=== PATIENT | male | born 1950 | race African-American/Black ===

== ENCOUNTER 2017-05-13 16:18 | Inpatient (IN) | payer OTHER, MEDICARE ==
[~2017-05-13] VITALS: Ht 170.2 cm; Wt 71.3 kg
[2017-05-13] VITALS (14 sets, daily range): BP systolic 113–168; BP diastolic 56–89; PULSE 72–116; RESP 18–21; TEMP 98.6–98.8; O2SAT 96–100
[2017-05-13] MEDS ORDERED: PROPOFOL 1000 MG/100 ML INJ 100 ML ONE (16:25)
[2017-05-13] MEDS ORDERED: MIDAZOLAM HCL 5 MG/ML VIAL (1 ML) ONE (16:34)
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
[2017-05-13 17:13] LABS: BASOPHIL # 0.1 TH/MM3 (0-0.2); BASOPHIL % 0.4 % (0.0-2.0); EOSINOPHIL % 0.2 % (0.0-4.0); HEMATOCRIT 34.5 % (39.0-51.0); LYMPHOCYTE # 3.4 TH/MM3 (1.0-4.8); MEAN CELL VOLUME 79.7 FL (80.0-100.0); MEAN CORPUSCULAR HEMOGLOBIN 24.5 PG (27.0-34.0); MEAN CORPUSCULAR HGB CONC 30.7 % (32.0-36.0); MONO % 3.4 % (0.0-8.0); PLATELET COUNT 281 TH/MM3 (150-450); RED BLOOD COUNT 4.33 MIL/MM3 (4.50-5.90); RED CELL DISTRIBUTION WIDTH 21.1 % (11.6-17.2); WHITE BLOOD COUNT 17.1 TH/MM3 (4.0-11.0)
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
[2017-05-13] MEDS ORDERED: IOHEXOL 350 MG/ML 10 ML VIAL (for RAD DIAG) IVCONTRAST ONE (17:17)
[2017-05-13 17:27] LABS: HEMO FLAGS AUTO DIFF; I-STAT POTASSIUM 5.2 MMOL/L (3.5-4.9)
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
[2017-05-13] MEDS ORDERED: ROCURONIUM INJ 50 MG/5 ML VIAL ONE ×2 (17:31→20:03)
[2017-05-13] MEDS ORDERED: SUCCINYLCHOLINE CHLORIDE 200 MG/10 ML VIAL ONE (17:31)
[2017-05-13 17:33] LABS: APTT (PATIENT) 25.4 SEC (24.3-30.1); PROTHROMBIN TIME - PATIENT 10.8 SEC (9.8-11.6)
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
[2017-05-13 18:00] LABS: OVALOCYTES 2+ (NORMAL); PLATELET ESTIMATE SMEAR NORMAL (NORMAL); PLATELET MORPHOLOGY NORMAL (NORMAL); SCAN/DIFF AUTO DIFF CONFIRMED; TARGET CELLS 1+ (NORMAL)
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
[2017-05-13] MEDS: PROPOFOL 1000 MG/100 ML IV PRN ×2 (18:30→23:09)
[2017-05-13 18:31] LABS: BLOOD GAS BASE EXCESS -1.9 mmol/L (-2-2); BLOOD GAS HCO3 24 mmol/L (22-26); BLOOD GAS O2 HGB SATURATION 98 % (90-100); BLOOD GAS PCO2 58 mmHg (38-42); BLOOD GAS PO2 306 mmHg (61-120); BLOOD GAS TOTAL HGB 9.6 G/DL (12.0-16.0); TEMP CORR TO 98.6
[2017-05-13 18:35] LABS: CRITICAL VALUE YES; DRAW SITE RT RADIAL; FIO2 100 %; NUMBER OF ARTERIAL PUNCTURES 2; OXYGEN DEVICE VENTILATOR; ULNAR PULSE PRESENT
[2017-05-13 18:36] LABS: STAT NO
[2017-05-13] MEDS ORDERED: CHLORHEXIDINE GLUCONATE 2 % 1 PACK (2 CLOTHS) TOP PRN (18:45)
[2017-05-13] MEDS ORDERED: MISCELLANEOUS NURSING INFORMATION XX SCH (18:45)
[2017-05-13] MEDS ORDERED: SODIUM CHLOR 0.9% 1000 ML INJ 1,000 ML IV SCH (19:00)
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
[2017-05-13] MEDS: fentaNYL DRIP 250 ML IV PRN (19:48)
[2017-05-13] MEDS ORDERED: SODIUM CHLOR 0.9% 1000 ML INJ 1,000 ML IV ONE (20:00)
[2017-05-13] MEDS ORDERED: ROCURONIUM INJ 100 MG/10 ML VIAL IV ONE (20:00)
[2017-05-13 20:26] LABS: HEMATOCRIT 24.1 % (39.0-51.0)
[2017-05-13 20:28] LABS: REVIEW FLAG FINAL
[2017-05-13] MEDS ORDERED: IODIXANOL 320 MG/ML 50 ML VIAL (for RAD SPEC) I-ARTERIAL ONE (22:14)
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
[2017-05-13] MEDS: FAMOTIDINE 20 MG/2 ML VIAL IV PUSH SCH (23:09)
[2017-05-13] MEDS: DOCUSATE SODIUM 50 MG/SENNA 8.6 MG TAB PO SCH (23:09)
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
[2017-05-13 23:40] LABS: AUTOMATED NEUTROPHIL # 22.5 TH/MM3 (1.8-7.7); BASOPHIL % 0.2 % (0.0-2.0); HEMATOCRIT 37.9 % (39.0-51.0); HEMO FLAGS DIFF FINAL; LYMPH % 3.6 % (9.0-44.0); LYMPHOCYTE # 0.9 TH/MM3 (1.0-4.8); MEAN CELL VOLUME 82.6 FL (80.0-100.0); MEAN CORPUSCULAR HGB CONC 32.7 % (32.0-36.0); MONO % 8.1 % (0.0-8.0); NEUT % 88.1 % (16.0-70.0); PLATELET COUNT 214 TH/MM3 (150-450); RED BLOOD COUNT 4.59 MIL/MM3 (4.50-5.90); RED CELL DISTRIBUTION WIDTH 18.8 % (11.6-17.2); WHITE BLOOD COUNT 25.5 TH/MM3 (4.0-11.0)
[2017-05-14] VITALS (19 sets, daily range): BP systolic 94–122; BP diastolic 54–67; PULSE 44–55; RESP 14–46; TEMP 96.6–99.1; O2SAT 95–100
[2017-05-14] MEDS ORDERED: ALBUMIN HUMAN 5% 25 GM/500 ML BOTTLE ONE (00:42)
[2017-05-14] MEDS ORDERED: ALBUMIN HUMAN 5% 25 GM/500 ML BOTTLE IV ONE (01:00)
[2017-05-14] MEDS: SODIUM CHLOR 0.9% 1000 ML INJ 1,000 ML IV SCH ×3 (01:24→14:20)
[2017-05-14] MEDS: CHLORHEXIDINE GLUCONATE 2 % 1 PACK (2 CLOTHS) TOP SCH (04:00)
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
[2017-05-14 06:55] LABS: PROTHROMBIN TIME - PATIENT 11.1 SEC (9.8-11.6)
[2017-05-14 06:59] LABS: AUTOMATED NEUTROPHIL # 13.2 TH/MM3 (1.8-7.7); BASOPHIL % 0.1 % (0.0-2.0); EOSINOPHIL % 0.2 % (0.0-4.0); HEMATOCRIT 35.2 % (39.0-51.0); HEMO FLAGS DIFF FINAL; LYMPH % 10.3 % (9.0-44.0); LYMPHOCYTE # 1.8 TH/MM3 (1.0-4.8); MEAN CELL VOLUME 81.9 FL (80.0-100.0); MEAN CORPUSCULAR HEMOGLOBIN 26.8 PG (27.0-34.0); MEAN CORPUSCULAR HGB CONC 32.7 % (32.0-36.0); MONO % 12.1 % (0.0-8.0); NEUT % 77.3 % (16.0-70.0); PLATELET COUNT 195 TH/MM3 (150-450); RED CELL DISTRIBUTION WIDTH 18.7 % (11.6-17.2); WHITE BLOOD COUNT 17.1 TH/MM3 (4.0-11.0)
[2017-05-14 07:36] LABS: BICARBONATE 24.6 MEQ/L (21.0-32.0); MAGNESIUM 1.7 MG/DL (1.5-2.5); POTASSIUM 4.9 MEQ/L (3.5-5.1)
[2017-05-14] MEDS: DOCUSATE SODIUM 50 MG/SENNA 8.6 MG TAB PO SCH (09:00)
[2017-05-14] MEDS: fentaNYL DRIP 250 ML IV PRN (09:23)
[2017-05-14] MEDS: FAMOTIDINE 20 MG/2 ML VIAL IV PUSH SCH ×2 (09:23→20:24)
[2017-05-14 10:06] LABS: BLOOD GAS CARBOXYHEMOGLOBIN 1.4 % (0-4); BLOOD GAS HCO3 23 mmol/L (22-26); BLOOD GAS O2 HGB SATURATION 88 % (90-100); BLOOD GAS OXYGEN CONTENT 14.5 Vol % (12.0-20.0); BLOOD GAS PCO2 40 mmHg (38-42); BLOOD GAS PO2 63 mmHg (61-120); BLOOD GAS TOTAL HGB 11.7 G/DL (12.0-16.0); TEMP CORR TO 98.6
[2017-05-14 10:07] LABS: CRITICAL VALUE YES
[2017-05-14 10:08] LABS: OXYGEN DEVICE VENTILATOR
[2017-05-14 10:11] LABS: DRAW SITE RT RADIAL; FIO2 45 %; NUMBER OF ARTERIAL PUNCTURES 1; STAT YES; ULNAR PULSE PRESENT
[2017-05-14] MEDS ORDERED: POTASSIUM CHLOR 40 MEQ PREMIX 100 ML IV PRN ×2 (10:30)
[2017-05-14] MEDS ORDERED: MAGNESIUM SULFATE INJ 4 GM in SODIUM CHLORIDE 0.9% INJ 92 ML IV PRN (10:30)
[2017-05-14] MEDS ORDERED: MAGNESIUM SULFATE INJ 2 GM in SODIUM CHLORIDE 0.9% INJ 96 ML IV PRN (10:30)
[2017-05-14] MEDS ORDERED: SODIUM PHOSPHATE INJ 30 MMOL in SODIUM CHLOR 0.9% 250 ML INJ 240 ML IV PRN (10:30)
[2017-05-14] MEDS ORDERED: POTASSIUM PHOSPHATE INJ 30 MMOL in SODIUM CHLOR 0.9% 250 ML INJ 250 ML IV PRN (10:30)
[2017-05-14] MEDS ORDERED: POTASSIUM PHOSPHATE MONOBASIC 500 MG TAB PO PRN (10:30)
[2017-05-14] MEDS ORDERED: MAGNESIUM OXIDE 400 MG TAB PO PRN (10:30)
[2017-05-14] MEDS ORDERED: POTASSIUM CHLOR 20 MEQ PREMIX 100 ML IV PRN (10:30)
[2017-05-14] MEDS ORDERED: POTASSIUM PHOSPHATE MONOBASIC 500 MG TAB PO/TUBE PRN (10:30)
[2017-05-14] MEDS ORDERED: POTASSIUM CHLORIDE 25 MEQ EFFERVESCENT TAB PO PRN (10:30)
[2017-05-14] MEDS ORDERED: SODIUM CHLORID 0.9% 500 ML INJ 500 ML IV ONE (13:45)
[2017-05-14] MEDS: MIDAZOLAM 100 MG/100 ML INJ 100 ML IV PRN (14:19)
--- NOTE | 2017-05-14 16:07 | EKG ---
Date Performed: 05/14/2017 Time Performed: 11:26:02 PTAGE: 89 years EKG: Sinus bradycardia. Prolonged QT interval Abnormal ECG NO PREVIOUS TRACING DOCTOR: Tiago Solano Interpretating Date/Time 05/14/2017 16:06:21
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
[2017-05-14] MEDS: CHLORHEXIDINE 0.12% (ORAL KIT) 15 ML CUP MT SCH (20:23)
[2017-05-15] VITALS (18 sets, daily range): BP systolic 100–163; BP diastolic 57–90; PULSE 45–95; RESP 14–16; TEMP 97.2–98.3; O2SAT 94–98
[2017-05-15] MEDS: fentaNYL DRIP 250 ML IV PRN (00:42)
[2017-05-15] MEDS: SODIUM CHLOR 0.9% 1000 ML INJ 1,000 ML IV SCH ×3 (02:13→21:02)
[2017-05-15 03:52] LABS: BLOOD GAS BASE EXCESS -3.2 mmol/L (-2-2); BLOOD GAS CARBOXYHEMOGLOBIN 1.3 % (0-4); BLOOD GAS HCO3 22 mmol/L (22-26); BLOOD GAS METHEMOGLOBIN 0.8 % (0-2); BLOOD GAS O2 HGB SATURATION 97 % (90-100); BLOOD GAS OXYGEN CONTENT 16.8 Vol % (12.0-20.0); BLOOD GAS PCO2 45 mmHg (38-42); BLOOD GAS PO2 123 mmHg (61-120); BLOOD GAS TOTAL HGB 12.3 G/DL (12.0-16.0); CRITICAL VALUE NO; OXYGEN DEVICE VENTILATOR; TEMP CORR TO 98.6
[2017-05-15 03:53] LABS: DRAW SITE RT RADIAL; FIO2 45 %; NUMBER OF ARTERIAL PUNCTURES 1; STAT NO; ULNAR PULSE PRESENT; VENT SETTINGS PRVC/AC
[2017-05-15] MEDS: CHLORHEXIDINE GLUCONATE 2 % 1 PACK (2 CLOTHS) TOP SCH (04:00)
[2017-05-15 05:04] LABS: AUTOMATED NEUTROPHIL # 8.7 TH/MM3 (1.8-7.7); BASOPHIL % 0.3 % (0.0-2.0); EOSINOPHIL # 0.5 TH/MM3 (0-0.4); EOSINOPHIL % 4.2 % (0.0-4.0); HEMATOCRIT 37.6 % (39.0-51.0); HEMO FLAGS DIFF FINAL; LYMPH % 13.4 % (9.0-44.0); LYMPHOCYTE # 1.7 TH/MM3 (1.0-4.8); MEAN CELL VOLUME 83.9 FL (80.0-100.0); MEAN CORPUSCULAR HEMOGLOBIN 27.1 PG (27.0-34.0); MEAN CORPUSCULAR HGB CONC 32.3 % (32.0-36.0); MONO % 14.5 % (0.0-8.0); NEUT % 67.6 % (16.0-70.0); PLATELET COUNT 157 TH/MM3 (150-450); RED BLOOD COUNT 4.48 MIL/MM3 (4.50-5.90); RED CELL DISTRIBUTION WIDTH 19.6 % (11.6-17.2); WHITE BLOOD COUNT 12.8 TH/MM3 (4.0-11.0)
[2017-05-15 05:36] LABS: ALKALINE PHOSPHATASE 148 U/L (45-117); ALT (GPT) 26 U/L (12-78); ANION GAP 8 MEQ/L (5-15); AST (GOT) 41 U/L (15-37); BICARBONATE 24.3 MEQ/L (21.0-32.0); BLOOD UREA NITROGEN 23 MG/DL (7-18); CHLORIDE 115 MEQ/L (98-107); GLOMERULAR FILTRATION RATE 68 ML/MIN (>89); POTASSIUM 4.4 MEQ/L (3.5-5.1); SODIUM (NA) 147 MEQ/L (136-145); TOTAL BILIRUBIN ADULT 2.7 MG/DL (0.2-1.0)
--- NOTE | 2017-05-15 05:53 | RADRPT ---
EXAM DATE/TIME: 05/15/2017 04:54 [place] COMPARISON: CHEST SINGLE AP, May 14, 2017, 4:30. INDICATIONS : Short of breath. MEDICAL HISTORY : None. SURGICAL HISTORY : None. ENCOUNTER: Subsequent ACUITY: 3 days PAIN SCORE: Non-responsive. LOCATION: Bilateral chest FINDINGS: Endotracheal tube, nasogastric tube and right thoracostomy tube are present in good position. There i s no evidence of pneumothorax. Basilar consolidation is slightly improved. Cardiac contours are gross ly stable. CONCLUSION: Slight interval improvement in aeration. Min Damon MD on May 15, 2017 at 5:51 Board Certified Radiologist. This report was verified electronically.
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
[2017-05-15] MEDS: FAMOTIDINE 20 MG/2 ML VIAL IV PUSH SCH ×2 (09:13→21:00)
[2017-05-15] MEDS: LACTULOSE SYRUP 20 GM/30 ML CUP PO SCH (09:13)
[2017-05-15] MEDS: DOCUSATE SODIUM 50 MG/SENNA 8.6 MG TAB PO SCH ×2 (09:13→21:00)
[2017-05-15] MEDS: CHLORHEXIDINE 0.12% (ORAL KIT) 15 ML CUP MT SCH ×2 (09:13→21:01)
[2017-05-15] MEDS: oxyCODONE HCL ORAL CONC 20 MG/ML SYRINGE PO SCH ×4 (11:44→23:32)
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
--- NOTE | 2017-05-15 12:57 | ECHRPT ---
Indication: TRAUMA CONCLUSIONS The left ventricular systolic function is low normal with an estimated ejection fraction in the rang e of 50- 55%. Mild concentric left ventricular hypertrophy. Normal left ventricular size. [id number] mitral valve regurgitation. There is moderate tricuspid regurgitation. The estimated pulmonary arterial pressure is 46.7 mmHg. BP: / HR: 70 Rhythm: Sinus MEASUREMENTS (Male / Female) Normal Values Technical Quality:Good 2D ECHO LV Diastolic Diameter PLAX 4.8 cm 4.2 - 5.9 / 3.9 - 5.3 cm LV Systolic Diameter PLAX 3.8 cm IVS Diastolic Thickness 1.2 cm 0.6 - 1.0 / 0.6 - 0.9 cm LVPW Diastolic Thickness 1.2 cm 0.6 - 1.0 / 0.6 - 0.9 cm LV Relative Wall Thickness 0.5 LVOT Diameter 2.0 cm M-MODE Aortic Root Diameter MM 3.4 cm LA Systolic Diameter MM 3.9 cm LA Ao Ratio MM 1.1 AV Cusp Separation MM 1.9 cm DOPPLER AV Peak Velocity 163.0 cm/s AV Peak Gradient 10.6 mmHg LVOT Peak Velocity 109.0 cm/s LVOT Peak Gradient 4.8 mmHg AV Area Cont Eq pk 2.1 cm MR Peak Velocity 235.0 cm/s MR Peak Gradient 22.1 mmHg Mitral E Point Velocity 111.0 cm/s Mitral A Point Velocity 110.0 cm/s Mitral E to A Ratio 1.0 LV E' Lateral Velocity 8.5 cm/s Mitral E to LV E' Lateral Ratio 13.1 LV E' Septal Velocity 8.0 cm/s Mitral E to LV E' Septal Ratio 13.9 TR Peak Velocity 303.0 cm/s TR Peak Gradient 36.7 mmHg Right Atrial Pressure 10.0 mmHg Pulmonary Artery Systolic Pressu 46.7 mmHg Right Ventricular Systolic Press 46.7 mmHg PV Peak Velocity 141.0 cm/s PV Peak Gradient 8.0 mmHg FINDINGS LEFT VENTRICLE The left ventricular systolic function is low normal with an estimated ejection fraction in the rang e of 50- 55%. Mild concentric left ventricular hypertrophy. Normal left ventricular size. RIGHT VENTRICLE Normal right ventricular size and systolic function. LEFT ATRIUM The left atrial size is normal. RIGHT ATRIUM The right atrial size is normal. ATRIAL SEPTUM Normal atrial septal thickness without atrial level shunting by limited color doppler interrogation. AORTA The aortic root and proximal ascending aorta are normal in size on limited imaging. MITRAL VALVE [id number] mitral valve regurgitation. AORTIC VALVE Trileaflet aortic valve. No aortic valve stenosis or regurgitation. TRICUSPID VALVE There is moderate tricuspid regurgitation. The estimated pulmonary arterial pressure is 46.7 mmHg. PULMONARY VALVE No pulmonary valve regurgitation or stenosis. VESSELS The inferior vena cava is normal in size. PERICARDIUM No pericardial effusion. Josue Olivares MD, FACC (Electronically Signed) Final Date:15 May 2017 12:56
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
[2017-05-15] MEDS: MAGNESIUM HYDROXIDE SUSP 30 ML CUP PO SCH (21:00)
[2017-05-16] VITALS (18 sets, daily range): BP systolic 104–153; BP diastolic 61–84; PULSE 73–85; RESP 14–18; TEMP 98.4–99.7; O2SAT 93–99
[2017-05-16] MEDS: MIDAZOLAM 100 MG/100 ML INJ 100 ML IV PRN (02:34)
[2017-05-16] MEDS: oxyCODONE HCL ORAL CONC 20 MG/ML SYRINGE PO SCH ×6 (02:35→23:00)
[2017-05-16] MEDS: CHLORHEXIDINE GLUCONATE 2 % 1 PACK (2 CLOTHS) TOP SCH (04:00)
[2017-05-16 04:05] LABS: BLOOD GAS BASE EXCESS -3.2 mmol/L (-2-2); BLOOD GAS CARBOXYHEMOGLOBIN 1.8 % (0-4); BLOOD GAS HCO3 22 mmol/L (22-26); BLOOD GAS METHEMOGLOBIN 0.8 % (0-2); BLOOD GAS O2 HGB SATURATION 95 % (90-100); BLOOD GAS OXYGEN CONTENT 16.4 Vol % (12.0-20.0); BLOOD GAS PCO2 46 mmHg (38-42); BLOOD GAS PO2 101 mmHg (61-120); BLOOD GAS TOTAL HGB 12.2 G/DL (12.0-16.0); CRITICAL VALUE NO; OXYGEN DEVICE VENTILATOR; TEMP CORR TO 98.6
[2017-05-16 04:06] LABS: DRAW SITE RT RADIAL; FIO2 40 %; NUMBER OF ARTERIAL PUNCTURES 1; STAT NO; ULNAR PULSE PRESENT; VENT SETTINGS PRVC/AC
[2017-05-16 04:57] LABS: AUTOMATED NEUTROPHIL # 9.3 TH/MM3 (1.8-7.7); BASOPHIL # 0.1 TH/MM3 (0-0.2); BASOPHIL % 0.5 % (0.0-2.0); EOSINOPHIL # 0.8 TH/MM3 (0-0.4); HEMATOCRIT 37.9 % (39.0-51.0); HEMO FLAGS DIFF FINAL; LYMPH % 9.4 % (9.0-44.0); LYMPHOCYTE # 1.2 TH/MM3 (1.0-4.8); MEAN CORPUSCULAR HEMOGLOBIN 27.1 PG (27.0-34.0); MEAN CORPUSCULAR HGB CONC 32.3 % (32.0-36.0); MONO % 13.4 % (0.0-8.0); NEUT % 70.7 % (16.0-70.0); PLATELET COUNT 158 TH/MM3 (150-450); RED BLOOD COUNT 4.51 MIL/MM3 (4.50-5.90); RED CELL DISTRIBUTION WIDTH 19.6 % (11.6-17.2); WHITE BLOOD COUNT 13.2 TH/MM3 (4.0-11.0)
--- NOTE | 2017-05-16 05:06 | RADRPT ---
EXAM DATE/TIME: 05/16/2017 04:20 [facility] COMPARISON: CHEST SINGLE AP, May 15, 2017, 4:54. INDICATIONS : Shortness of breath. MEDICAL HISTORY : Non-responsive SURGICAL HISTORY : Non-responsive ENCOUNTER: Subsequent ACUITY: 4 - 6 days PAIN SCORE: Non-responsive. LOCATION: Bilateral chest FINDINGS: Endotracheal tube, nasogastric tube and right thoracostomy tube are stable in position. Left perihila r and bibasilar parenchymal opacities are grossly stable. Accounting for rotation, cardiac contours a re unchanged. CONCLUSION: No significant interval change Min Damon MD on May 16, 2017 at 5:04 Board Certified Radiologist. This report was verified electronically.
[2017-05-16 05:27] LABS: ANION GAP 8 MEQ/L (5-15); AST (GOT) 39 U/L (15-37); BLOOD UREA NITROGEN 16 MG/DL (7-18); CHLORIDE 115 MEQ/L (98-107); GLOMERULAR FILTRATION RATE 89 ML/MIN (>89); POTASSIUM 4.4 MEQ/L (3.5-5.1); SODIUM (NA) 145 MEQ/L (136-145)
[2017-05-16 05:31] LABS: ALKALINE PHOSPHATASE 178 U/L (45-117); ALT (GPT) 23 U/L (12-78); TOTAL BILIRUBIN ADULT 1.4 MG/DL (0.2-1.0)
[2017-05-16] MEDS: SODIUM CHLOR 0.9% 1000 ML INJ 1,000 ML IV SCH ×2 (06:02→20:53)
[2017-05-16] MEDS: CHLORHEXIDINE 0.12% (ORAL KIT) 15 ML CUP MT SCH ×2 (08:00→20:20)
[2017-05-16] MEDS: DOCUSATE SODIUM 50 MG/SENNA 8.6 MG TAB PO SCH ×2 (09:00→20:20)
[2017-05-16] MEDS: FAMOTIDINE 20 MG/2 ML VIAL IV PUSH SCH (09:00)
[2017-05-16] MEDS: LACTULOSE SYRUP 20 GM/30 ML CUP PO SCH (09:00)
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
[2017-05-16] MEDS: ENOXAPARIN SODIUM 30 MG/0.3 ML SYRINGE SQ SCH (12:51)
[2017-05-16] MEDS: MAGNESIUM HYDROXIDE SUSP 30 ML CUP PO SCH (20:20)
[2017-05-16] MEDS: FAMOTIDINE 20 MG TAB PO SCH (20:20)
[2017-05-16] MEDS: fentaNYL DRIP 250 ML IV PRN (23:28)
[2017-05-17] VITALS (20 sets, daily range): BP systolic 97–136; BP diastolic 55–66; PULSE 68–100; RESP 14; TEMP 98.4–98.8; O2SAT 97–100
[2017-05-17] MEDS: ENOXAPARIN SODIUM 30 MG/0.3 ML SYRINGE SQ SCH ×2 (00:14→12:32)
[2017-05-17] MEDS: CHLORHEXIDINE GLUCONATE 2 % 1 PACK (2 CLOTHS) TOP SCH (00:23)
[2017-05-17] MEDS: oxyCODONE HCL ORAL CONC 20 MG/ML SYRINGE PO SCH ×2 (02:40→08:52)
[2017-05-17 04:52] LABS: AUTOMATED NEUTROPHIL # 11.6 TH/MM3 (1.8-7.7); BASOPHIL % 0.2 % (0.0-2.0); EOSINOPHIL # 0.8 TH/MM3 (0-0.4); EOSINOPHIL % 5.1 % (0.0-4.0); HEMATOCRIT 35.1 % (39.0-51.0); LYMPH % 9.5 % (9.0-44.0); LYMPHOCYTE # 1.5 TH/MM3 (1.0-4.8); MEAN CELL VOLUME 85.1 FL (80.0-100.0); MEAN CORPUSCULAR HEMOGLOBIN 27.3 PG (27.0-34.0); MEAN CORPUSCULAR HGB CONC 32.1 % (32.0-36.0); MONO % 13.9 % (0.0-8.0); NEUT % 71.3 % (16.0-70.0); PLATELET COUNT 134 TH/MM3 (150-450); RED BLOOD COUNT 4.12 MIL/MM3 (4.50-5.90); RED CELL DISTRIBUTION WIDTH 19.8 % (11.6-17.2); WHITE BLOOD COUNT 16.2 TH/MM3 (4.0-11.0)
[2017-05-17 05:10] LABS: HEMO FLAGS AUTO DIFF
[2017-05-17 05:20] LABS: ANION GAP 6 MEQ/L (5-15); AST (GOT) 27 U/L (15-37); BLOOD UREA NITROGEN 14 MG/DL (7-18); CHLORIDE 114 MEQ/L (98-107); GLOMERULAR FILTRATION RATE 105 ML/MIN (>89); POTASSIUM 4.3 MEQ/L (3.5-5.1); SODIUM (NA) 145 MEQ/L (136-145)
[2017-05-17 05:22] LABS: ALT (GPT) 20 U/L (12-78)
[2017-05-17 05:23] LABS: ALKALINE PHOSPHATASE 164 U/L (45-117); TOTAL BILIRUBIN ADULT 1.2 MG/DL (0.2-1.0)
[2017-05-17 05:36] LABS: BLOOD GAS BASE EXCESS -0.6 mmol/L (-2-2); BLOOD GAS CARBOXYHEMOGLOBIN 1.7 % (0-4); BLOOD GAS HCO3 25 mmol/L (22-26); BLOOD GAS O2 HGB SATURATION 96 % (90-100); BLOOD GAS OXYGEN CONTENT 15.8 Vol % (12.0-20.0); BLOOD GAS PCO2 48 mmHg (38-42); BLOOD GAS PO2 120 mmHg (61-120); BLOOD GAS TOTAL HGB 11.6 G/DL (12.0-16.0); CRITICAL VALUE NO; OXYGEN DEVICE VENTILATOR; TEMP CORR TO 98.6
[2017-05-17 05:37] LABS: DRAW SITE RT RADIAL; FIO2 40 %; NUMBER OF ARTERIAL PUNCTURES 1; STAT NO; ULNAR PULSE PRESENT; VENT SETTINGS PRVC/AC
[2017-05-17 06:35] LABS: BANDS 7 % (0-6); EOSINOPHILS 3 % (0-4); METAMYELOCYTES 2 % (0-1); MYELOCYTES 1 % (0-0); NEUTROPHIL # MANUAL DIFF 14.1 TH/MM3 (1.8-7.7); PLATELET ESTIMATE SMEAR LOW (NORMAL); PLATELET MORPHOLOGY NORMAL (NORMAL); POLYS (SEG NEUTROPHILS) 77 % (16-70); SCAN/DIFF FINAL DIFF MANUAL; WBC DIFF SAMPLE 100
[2017-05-17 06:36] LABS: ACANTHOCYTES OCC (NORMAL); OVALOCYTES 1+ (NORMAL)
[2017-05-17 06:37] LABS: HELMET CELLS OCC (NORMAL)
[2017-05-17] MEDS: CHLORHEXIDINE 0.12% (ORAL KIT) 15 ML CUP MT SCH ×2 (08:00→20:50)
[2017-05-17] MEDS: FAMOTIDINE 20 MG TAB PO SCH ×2 (08:51→20:51)
[2017-05-17] MEDS: DOCUSATE SODIUM 50 MG/SENNA 8.6 MG TAB PO SCH ×2 (09:00→20:50)
[2017-05-17] MEDS: LACTULOSE SYRUP 20 GM/30 ML CUP PO SCH (09:00)
[2017-05-17] MEDS: METHOCARBAMOL 500 MG TAB PO SCH ×3 (09:45→20:51)
[2017-05-17] MEDS: LIDOCAINE HCL 5% PATCH T-DERMAL SCH ×2 (09:45→12:34)
[2017-05-17] MEDS: METOCLOPRAMIDE HCL 10 MG/2 ML VIAL IV PUSH SCH ×3 (09:45→20:50)
--- NOTE | 2017-05-17 10:22 | RADRPT ---
EXAM DATE/TIME: 05/17/2017 09:32 [facility] COMPARISON: CHEST SINGLE AP, May 16, 2017, 4:20. INDICATIONS : Evaluate pneumothorax MEDICAL HISTORY : None. SURGICAL HISTORY : None. ENCOUNTER: Subsequent ACUITY: 4 - 6 days PAIN SCORE: Non-responsive. LOCATION: chest FINDINGS: A single view of the chest demonstrates a small right apical pneumothorax. Right thoracostomy tube re laureen in position. Persistent hypoaeration with bilateral airspace disease is noted. Focal consolidation left mid lung h as improved. Support devices are stable position. Heart is mildly enlarged. CONCLUSION: 1. Small right apical pneumothorax. 2. Persistent bilateral airspace disease with slight improvement in the left midlung. 3. Stable support devices. 1. Jeff Kaiser MD on May 17, 2017 at 10:17 Board Certified Radiologist. This report was verified electronically.
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
[2017-05-17] MEDS: oxyCODONE HCL ORAL CONC 5 MG/0.25 ML SYRINGE PO SCH ×3 (12:33→20:51)
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
[2017-05-17] MEDS: SODIUM CHLOR 0.9% 1000 ML INJ 1,000 ML IV SCH (17:49)
[2017-05-17] MEDS: fentaNYL DRIP 250 ML IV PRN (18:20)
[2017-05-17] MEDS: MAGNESIUM HYDROXIDE SUSP 30 ML CUP PO SCH (20:50)
[2017-05-18] VITALS (14 sets, daily range): BP systolic 122–172; BP diastolic 58–92; PULSE 74–99; RESP 8–20; TEMP 98.8–100.2; O2SAT 96–100
[2017-05-18] MEDS: oxyCODONE HCL ORAL CONC 5 MG/0.25 ML SYRINGE PO SCH ×6 (00:33→20:58)
[2017-05-18] MEDS: ENOXAPARIN SODIUM 30 MG/0.3 ML SYRINGE SQ SCH ×2 (00:33→13:00)
[2017-05-18] MEDS: CHLORHEXIDINE GLUCONATE 2 % 1 PACK (2 CLOTHS) TOP SCH (00:33)
[2017-05-18 05:42] LABS: BLOOD GAS BASE EXCESS 0.4 mmol/L (-2-2); BLOOD GAS CARBOXYHEMOGLOBIN 1.8 % (0-4); BLOOD GAS HCO3 25 mmol/L (22-26); BLOOD GAS O2 HGB SATURATION 94 % (90-100); BLOOD GAS OXYGEN CONTENT 14.1 Vol % (12.0-20.0); BLOOD GAS PCO2 47 mmHg (38-42); BLOOD GAS PO2 88 mmHg (61-120); BLOOD GAS TOTAL HGB 10.5 G/DL (12.0-16.0); CRITICAL VALUE NO; OXYGEN DEVICE VENTILATOR; TEMP CORR TO 98.6
[2017-05-18 05:43] LABS: DRAW SITE LT RADIAL; NUMBER OF ARTERIAL PUNCTURES 2; STAT NO; ULNAR PULSE PRESENT; VENT SETTINGS PRVC
[2017-05-18 05:52] LABS: AUTOMATED NEUTROPHIL # 15.1 TH/MM3 (1.8-7.7); BASOPHIL % 0.2 % (0.0-2.0); EOSINOPHIL # 0.4 TH/MM3 (0-0.4); HEMATOCRIT 33.8 % (39.0-51.0); LYMPH % 4.8 % (9.0-44.0); LYMPHOCYTE # 0.9 TH/MM3 (1.0-4.8); MEAN CELL VOLUME 85.1 FL (80.0-100.0); MEAN CORPUSCULAR HGB CONC 31.8 % (32.0-36.0); MONO % 12.5 % (0.0-8.0); NEUT % 80.5 % (16.0-70.0); PLATELET COUNT 136 TH/MM3 (150-450); RED BLOOD COUNT 3.97 MIL/MM3 (4.50-5.90); RED CELL DISTRIBUTION WIDTH 19.5 % (11.6-17.2); WHITE BLOOD COUNT 18.8 TH/MM3 (4.0-11.0)
[2017-05-18 05:54] LABS: HEMO FLAGS AUTO DIFF
[2017-05-18] MEDS: METOCLOPRAMIDE HCL 10 MG/2 ML VIAL IV PUSH SCH ×3 (06:07→20:58)
[2017-05-18] MEDS: METHOCARBAMOL 500 MG TAB PO SCH ×3 (06:08→20:57)
[2017-05-18 06:53] LABS: ACANTHOCYTES OCC (NORMAL)
[2017-05-18 06:55] LABS: HELMET CELLS OCC (NORMAL); OVALOCYTES 1+ (NORMAL); PLATELET ESTIMATE SMEAR LOW (NORMAL); PLATELET MORPHOLOGY ENLARGED (NORMAL); SCAN/DIFF AUTO DIFF CONFIRMED
[2017-05-18 07:40] LABS: BICARBONATE 25.5 MEQ/L (21.0-32.0); MAGNESIUM 1.8 MG/DL (1.5-2.5); POTASSIUM 4.4 MEQ/L (3.5-5.1)
[2017-05-18] MEDS: CHLORHEXIDINE 0.12% (ORAL KIT) 15 ML CUP MT SCH ×2 (08:00→20:57)
[2017-05-18] MEDS: FAMOTIDINE 20 MG TAB PO SCH ×2 (08:41→20:57)
[2017-05-18] MEDS: DOCUSATE SODIUM 50 MG/SENNA 8.6 MG TAB PO SCH ×2 (08:41→20:58)
[2017-05-18] MEDS: LIDOCAINE HCL 5% PATCH T-DERMAL SCH ×2 (08:42)
[2017-05-18] MEDS: LACTULOSE SYRUP 20 GM/30 ML CUP PO SCH (08:45)
[2017-05-18] MEDS: SODIUM CHLOR 0.9% 1000 ML INJ 1,000 ML IV SCH (13:21)
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
[2017-05-18] MEDS: MAGNESIUM HYDROXIDE SUSP 30 ML CUP PO SCH (20:58)
[2017-05-19] VITALS (19 sets, daily range): BP systolic 106–168; BP diastolic 57–72; PULSE 73–92; RESP 8–15; TEMP 97.9–100; O2SAT 96–99
[2017-05-19] MEDS: oxyCODONE HCL ORAL CONC 5 MG/0.25 ML SYRINGE PO SCH ×6 (00:25→20:00)
[2017-05-19] MEDS: ENOXAPARIN SODIUM 30 MG/0.3 ML SYRINGE SQ SCH ×2 (00:25→13:15)
[2017-05-19] MEDS: CHLORHEXIDINE GLUCONATE 2 % 1 PACK (2 CLOTHS) TOP SCH (00:25)
[2017-05-19 05:32] LABS: AUTOMATED NEUTROPHIL # 12.6 TH/MM3 (1.8-7.7); BASOPHIL # 0.1 TH/MM3 (0-0.2); BASOPHIL % 0.3 % (0.0-2.0); EOSINOPHIL # 0.5 TH/MM3 (0-0.4); EOSINOPHIL % 3.3 % (0.0-4.0); HEMATOCRIT 31.8 % (39.0-51.0); LYMPH % 5.9 % (9.0-44.0); MEAN CELL VOLUME 84.3 FL (80.0-100.0); MEAN CORPUSCULAR HEMOGLOBIN 27.3 PG (27.0-34.0); MEAN CORPUSCULAR HGB CONC 32.4 % (32.0-36.0); MONO % 13.5 % (0.0-8.0); PLATELET COUNT 131 TH/MM3 (150-450); RED BLOOD COUNT 3.77 MIL/MM3 (4.50-5.90); RED CELL DISTRIBUTION WIDTH 19.2 % (11.6-17.2); WHITE BLOOD COUNT 16.4 TH/MM3 (4.0-11.0)
[2017-05-19 05:38] LABS: HEMO FLAGS AUTO DIFF
[2017-05-19] MEDS: METHOCARBAMOL 500 MG TAB PO SCH ×3 (05:42→21:30)
[2017-05-19] MEDS: METOCLOPRAMIDE HCL 10 MG/2 ML VIAL IV PUSH SCH ×3 (05:42→21:31)
[2017-05-19 05:43] LABS: BICARBONATE 27.9 MEQ/L (21.0-32.0)
[2017-05-19] MEDS: CHLORHEXIDINE 0.12% (ORAL KIT) 15 ML CUP MT SCH ×2 (08:00→20:00)
[2017-05-19 08:12] LABS: OVALOCYTES 1+ (NORMAL); PLATELET ESTIMATE SMEAR LOW (NORMAL); PLATELET MORPHOLOGY NORMAL (NORMAL); SCAN/DIFF AUTO DIFF CONFIRMED
[2017-05-19] MEDS: LACTULOSE SYRUP 20 GM/30 ML CUP PO SCH ×2 (08:52→20:00)
[2017-05-19] MEDS: DOCUSATE SODIUM 50 MG/SENNA 8.6 MG TAB PO SCH ×2 (08:53→20:01)
[2017-05-19] MEDS: LIDOCAINE HCL 5% PATCH T-DERMAL SCH ×2 (08:53→09:20)
[2017-05-19] MEDS: FAMOTIDINE 20 MG TAB PO SCH ×2 (08:53→20:00)
[2017-05-19] MEDS: fentaNYL DRIP 250 ML IV PRN (09:49)
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
[2017-05-19] MEDS: SODIUM CHLOR 0.9% 1000 ML INJ 1,000 ML IV SCH (10:10)
[2017-05-19] MEDS: MIDAZOLAM 100 MG/100 ML INJ 100 ML IV PRN (11:37)
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
[2017-05-19] MEDS ORDERED: BISACODYL 10 MG SUPP RECTAL ONE (17:15)
[2017-05-19] MEDS ORDERED: BISACODYL 10 MG SUPP RECTAL PRN (17:15)
[2017-05-19] MEDS: MAGNESIUM HYDROXIDE SUSP 30 ML CUP PO SCH (20:00)
[2017-05-19] MEDS: REMOVE OLD LIDOCAINE PATCH T-DERMAL SCH ×2 (21:00)
[2017-05-20] VITALS (18 sets, daily range): BP systolic 106–124; BP diastolic 60–67; PULSE 81–110; RESP 12–22; TEMP 98.2–99.9; O2SAT 96–100
[2017-05-20] MEDS: ENOXAPARIN SODIUM 30 MG/0.3 ML SYRINGE SQ SCH (00:15)
[2017-05-20] MEDS: CHLORHEXIDINE GLUCONATE 2 % 1 PACK (2 CLOTHS) TOP SCH ×2 (00:16→22:25)
[2017-05-20] MEDS: MIDAZOLAM 100 MG/100 ML INJ 100 ML IV PRN (01:07)
[2017-05-20] MEDS: oxyCODONE HCL ORAL CONC 5 MG/0.25 ML SYRINGE PO SCH ×6 (04:55→20:56)
[2017-05-20 04:59] LABS: BICARBONATE 26.5 MEQ/L (21.0-32.0); POTASSIUM 3.9 MEQ/L (3.5-5.1)
[2017-05-20] MEDS ORDERED: PANTOPRAZOLE SODIUM 40 MG VIAL IV PUSH SCH (05:00)
[2017-05-20 05:02] LABS: AUTOMATED NEUTROPHIL # 11.3 TH/MM3 (1.8-7.7); BASOPHIL # 0.1 TH/MM3 (0-0.2); BASOPHIL % 0.4 % (0.0-2.0); EOSINOPHIL # 0.5 TH/MM3 (0-0.4); HEMATOCRIT 31.6 % (39.0-51.0); LYMPH % 7.5 % (9.0-44.0); LYMPHOCYTE # 1.2 TH/MM3 (1.0-4.8); MEAN CELL VOLUME 85.7 FL (80.0-100.0); MEAN CORPUSCULAR HEMOGLOBIN 27.5 PG (27.0-34.0); MEAN CORPUSCULAR HGB CONC 32.1 % (32.0-36.0); MONO % 15.6 % (0.0-8.0); NEUT % 73.5 % (16.0-70.0); PLATELET COUNT 147 TH/MM3 (150-450); RED BLOOD COUNT 3.68 MIL/MM3 (4.50-5.90); RED CELL DISTRIBUTION WIDTH 18.9 % (11.6-17.2); WHITE BLOOD COUNT 15.4 TH/MM3 (4.0-11.0)
[2017-05-20 05:04] LABS: HEMO FLAGS AUTO DIFF
[2017-05-20] MEDS: SODIUM CHLOR 0.9% 1000 ML INJ 1,000 ML IV SCH (05:26)
[2017-05-20] MEDS: METOCLOPRAMIDE HCL 10 MG/2 ML VIAL IV PUSH SCH ×3 (05:26→22:31)
[2017-05-20] MEDS: METHOCARBAMOL 500 MG TAB PO SCH ×3 (05:26→22:31)
[2017-05-20 06:12] LABS: EOSINOPHILS 1 % (0-4); NEUTROPHIL # MANUAL DIFF 13.6 TH/MM3 (1.8-7.7); POLYS (SEG NEUTROPHILS) 88 % (16-70); WBC DIFF SAMPLE 100
[2017-05-20 06:13] LABS: KERATOCYTES 1+ (NORMAL); OVALOCYTES 1+ (NORMAL); TARGET CELLS 2+ (NORMAL); TEARDROP RBCS 1+ (NORMAL)
[2017-05-20 06:14] LABS: PLATELET ESTIMATE SMEAR LOW (NORMAL); PLATELET MORPHOLOGY NORMAL (NORMAL); SCAN/DIFF FINAL DIFF MANUAL
[2017-05-20] MEDS: CHLORHEXIDINE 0.12% (ORAL KIT) 15 ML CUP MT SCH ×2 (08:00→20:55)
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
[2017-05-20] MEDS: LACTULOSE SYRUP 20 GM/30 ML CUP PO SCH ×2 (08:45→20:56)
[2017-05-20] MEDS: DOCUSATE SODIUM 50 MG/SENNA 8.6 MG TAB PO SCH ×2 (08:45→20:56)
[2017-05-20] MEDS: LIDOCAINE HCL 5% PATCH T-DERMAL SCH ×2 (08:48)
[2017-05-20] MEDS ORDERED: PANTOPRAZOLE INJ 80 MG in SODIUM CHLORIDE 0.9% INJ 35 ML IV ONE (09:23)
[2017-05-20] MEDS: PANTOPRAZOLE INJ 80 MG in SODIUM CHLORIDE 0.9% INJ 100 ML IV SCH ×2 (09:42→21:22)
[2017-05-20 10:55] LABS: HEMATOCRIT 32.4 % (39.0-51.0); REVIEW FLAG FINAL
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
[2017-05-20] MEDS: MAGNESIUM HYDROXIDE SUSP 30 ML CUP PO SCH (20:56)
[2017-05-20] MEDS: REMOVE OLD LIDOCAINE PATCH T-DERMAL SCH ×2 (20:56→21:00)
[2017-05-21] VITALS (17 sets, daily range): BP systolic 99–171; BP diastolic 56–82; PULSE 74–95; RESP 11–14; TEMP 97.9–99.7; O2SAT 96–100
[2017-05-21] MEDS: MIDAZOLAM 100 MG/100 ML INJ 100 ML IV PRN (02:01)
[2017-05-21] MEDS: fentaNYL DRIP 250 ML IV PRN (02:01)
[2017-05-21] MEDS: SODIUM CHLOR 0.9% 1000 ML INJ 1,000 ML IV SCH ×2 (02:02→22:34)
[2017-05-21] MEDS: oxyCODONE HCL ORAL CONC 5 MG/0.25 ML SYRINGE PO SCH ×6 (04:09→21:15)
[2017-05-21] MEDS: LABETALOL HCL 100 MG/20 ML VIAL IV PUSH PRN (04:23)
[2017-05-21 04:53] LABS: AUTOMATED NEUTROPHIL # 7.2 TH/MM3 (1.8-7.7); BASOPHIL # 0.1 TH/MM3 (0-0.2); BASOPHIL % 0.9 % (0.0-2.0); EOSINOPHIL # 0.5 TH/MM3 (0-0.4); EOSINOPHIL % 4.8 % (0.0-4.0); HEMATOCRIT 35.1 % (39.0-51.0); HEMO FLAGS DIFF FINAL; LYMPH % 11.5 % (9.0-44.0); LYMPHOCYTE # 1.2 TH/MM3 (1.0-4.8); MEAN CELL VOLUME 84.4 FL (80.0-100.0); MEAN CORPUSCULAR HEMOGLOBIN 26.7 PG (27.0-34.0); MEAN CORPUSCULAR HGB CONC 31.6 % (32.0-36.0); MONO % 13.5 % (0.0-8.0); NEUT % 69.3 % (16.0-70.0); PLATELET COUNT 136 TH/MM3 (150-450); RED BLOOD COUNT 4.16 MIL/MM3 (4.50-5.90); RED CELL DISTRIBUTION WIDTH 18.9 % (11.6-17.2); WHITE BLOOD COUNT 10.3 TH/MM3 (4.0-11.0)
[2017-05-21] MEDS: METHOCARBAMOL 500 MG TAB PO SCH ×3 (05:12→21:58)
[2017-05-21] MEDS: METOCLOPRAMIDE HCL 10 MG/2 ML VIAL IV PUSH SCH (05:12)
[2017-05-21 05:18] LABS: ALKALINE PHOSPHATASE 396 U/L (45-117); TOTAL BILIRUBIN ADULT 3.7 MG/DL (0.2-1.0)
[2017-05-21 05:32] LABS: ALT (GPT) 35 U/L (12-78); ANION GAP 5 MEQ/L (5-15); AST (GOT) 82 U/L (15-37); BICARBONATE 26.8 MEQ/L (21.0-32.0); BLOOD UREA NITROGEN 14 MG/DL (7-18); CHLORIDE 112 MEQ/L (98-107); GLOMERULAR FILTRATION RATE 135 ML/MIN (>89); POTASSIUM 4.5 MEQ/L (3.5-5.1); SODIUM (NA) 144 MEQ/L (136-145)
--- NOTE | 2017-05-21 05:43 | RADRPT ---
EXAM DATE/TIME: 05/21/2017 05:08 [place] COMPARISON: CHEST SINGLE AP, May 17, 2017, 13:14. INDICATIONS : Short of breath. MEDICAL HISTORY : None. SURGICAL HISTORY : None. ENCOUNTER: Subsequent ACUITY: 1 week PAIN SCORE: 0/10 LOCATION: Bilateral chest FINDINGS: The cardiac silhouette is normal in transverse diameter. There is left lower lobe atelectasis versus pneumonia. There is patchy alveolar disease bilaterally compatible with edema or pneumonia. A right c hest tube is in place. There is no evidence of pneumothorax. Endotracheal tube is at the litzy CONCLUSION: 1. Endotracheal tube at the litzy. 2. There is patchy alveolar disease bilaterally compatible with edema or pneumonia. There has been no significant change when compared to the prior exam. Tiago Wen MD on May 21, 2017 at 5:41 Board Certified Radiologist. This report was verified electronically.
[2017-05-21] MEDS: PANTOPRAZOLE INJ 80 MG in SODIUM CHLORIDE 0.9% INJ 100 ML IV SCH ×2 (07:42→17:17)
[2017-05-21] MEDS: CHLORHEXIDINE 0.12% (ORAL KIT) 15 ML CUP MT SCH ×2 (08:00→21:15)
[2017-05-21] MEDS: DOCUSATE SODIUM 50 MG/SENNA 8.6 MG TAB PO SCH ×2 (09:00→21:00)
[2017-05-21] MEDS: LACTULOSE SYRUP 20 GM/30 ML CUP PO SCH ×2 (09:00→21:00)
[2017-05-21] MEDS: LIDOCAINE HCL 5% PATCH T-DERMAL SCH ×2 (09:16)
[2017-05-21] MEDS ORDERED: PROPOFOL 200 MG/20 ML AMP IV ONE (12:00)
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
--- NOTE | 2017-05-21 13:54 | PD.PROCEDR ---
GI Procedure REFERRING PHYSICIAN Dr. mckeon PROCEDURE PERFORMED EGD with biopsy, cautery, epinephrine injection, clip placement INDICATION FOR PROCEDURE Upper GI bleed PROCEDURE: The procedure, risks and benefits were discussed with Mr. Solano and informed consent was obtained. Anesthesia sedated him with Diprivan. He was placed in the left lateral decubitus position. EGD: The Pentax videoscope was introduced through the oropharynx and advanced to the second portion of the duodenum under direct visualization. Retroflexion was performed in the stomach. FINDINGS: The esophagus this was normal The stomach there was a significant AVM noted in the fundus and initially we tried to cauterize apparently that was not enough and it was a difficult angulation we injected some epinephrine did some more cautery and placed 2 clips and finally we were able to control the bleeding otherwise gastric mucosa was somewhat erythemic in a patchy fashion antral biopsies were taken for further evaluation scarring was noted at the old PEG site The duodenum this was normal ESTIMATED BLOOD LOSS: About 50 cc SPECIMENS REMOVED: Antral biopsy COMPLICATIONS: None IMPRESSION: Gastric AVM Gastritis Scarring was noted at the old PEG site PLAN: Await biopsy Continue PPI Continue with current supportive care Monitor labs and transfuse as needed Ori Kothari MD May 21, 2017 13:54
[2017-05-21] MEDS ORDERED: EPINEPHrine HCL (1:10,000) 1 MG/10 ML SYRINGE SQ ONE (14:34)
[2017-05-21] MEDS: REMOVE OLD LIDOCAINE PATCH T-DERMAL SCH ×2 (21:00→21:17)
[2017-05-21] MEDS: MAGNESIUM HYDROXIDE SUSP 30 ML CUP PO SCH (21:00)
[2017-05-22] VITALS (19 sets, daily range): BP systolic 106–173; BP diastolic 56–85; PULSE 81–100; RESP 14–18; TEMP 99–100.6; O2SAT 95–100
[2017-05-22] MEDS: oxyCODONE HCL ORAL CONC 5 MG/0.25 ML SYRINGE PO SCH ×6 (01:21→21:06)
[2017-05-22] MEDS: MIDAZOLAM 100 MG/100 ML INJ 100 ML IV PRN (01:22)
[2017-05-22] MEDS: PANTOPRAZOLE INJ 80 MG in SODIUM CHLORIDE 0.9% INJ 100 ML IV SCH ×3 (03:12→23:22)
[2017-05-22] MEDS: CHLORHEXIDINE GLUCONATE 2 % 1 PACK (2 CLOTHS) TOP SCH (03:52)
[2017-05-22 05:01] LABS: AUTOMATED NEUTROPHIL # 8.9 TH/MM3 (1.8-7.7); BASOPHIL # 0.1 TH/MM3 (0-0.2); BASOPHIL % 0.7 % (0.0-2.0); EOSINOPHIL # 0.6 TH/MM3 (0-0.4); EOSINOPHIL % 5.1 % (0.0-4.0); HEMATOCRIT 32.8 % (39.0-51.0); HEMO FLAGS DIFF FINAL; LYMPH % 9.6 % (9.0-44.0); LYMPHOCYTE # 1.2 TH/MM3 (1.0-4.8); MEAN CELL VOLUME 84.3 FL (80.0-100.0); MONO % 14.4 % (0.0-8.0); NEUT % 70.2 % (16.0-70.0); PLATELET COUNT 196 TH/MM3 (150-450); RED BLOOD COUNT 3.89 MIL/MM3 (4.50-5.90); RED CELL DISTRIBUTION WIDTH 19.2 % (11.6-17.2); WHITE BLOOD COUNT 12.7 TH/MM3 (4.0-11.0)
[2017-05-22 05:27] LABS: ALT (GPT) 34 U/L (12-78)
[2017-05-22 05:29] LABS: ALKALINE PHOSPHATASE 447 U/L (45-117); TOTAL BILIRUBIN ADULT 5.7 MG/DL (0.2-1.0)
[2017-05-22 05:44] LABS: ANION GAP 9 MEQ/L (5-15); AST (GOT) 62 U/L (15-37); BICARBONATE 26.6 MEQ/L (21.0-32.0); BLOOD UREA NITROGEN 13 MG/DL (7-18); CHLORIDE 109 MEQ/L (98-107); GLOMERULAR FILTRATION RATE 121 ML/MIN (>89); POTASSIUM 4.2 MEQ/L (3.5-5.1); SODIUM (NA) 145 MEQ/L (136-145)
[2017-05-22] MEDS: METHOCARBAMOL 500 MG TAB PO SCH ×3 (06:08→21:07)
[2017-05-22] MEDS: CHLORHEXIDINE 0.12% (ORAL KIT) 15 ML CUP MT SCH ×2 (08:00→21:07)
[2017-05-22] MEDS: LIDOCAINE HCL 5% PATCH T-DERMAL SCH ×2 (08:38)
[2017-05-22] MEDS: DOCUSATE SODIUM 50 MG/SENNA 8.6 MG TAB PO SCH ×2 (08:39→21:06)
[2017-05-22] MEDS: LACTULOSE SYRUP 20 GM/30 ML CUP PO SCH ×2 (08:39→21:06)
[2017-05-22] MEDS: hydrALAZINE HCL 25 MG TAB PO SCH ×2 (13:45→21:06)
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
[2017-05-22] MEDS: LABETALOL HCL 100 MG/20 ML VIAL IV PUSH PRN (16:29)
[2017-05-22] MEDS: SODIUM CHLOR 0.9% 1000 ML INJ 1,000 ML IV SCH (17:13)
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
[2017-05-22] MEDS: REMOVE OLD LIDOCAINE PATCH T-DERMAL SCH ×2 (21:00→21:08)
[2017-05-22] MEDS: MAGNESIUM HYDROXIDE SUSP 30 ML CUP PO SCH (21:06)
[2017-05-23] VITALS (17 sets, daily range): BP systolic 144–186; BP diastolic 68–88; PULSE 66–92; RESP 17–24; TEMP 98.7–99.9; O2SAT 94–100
[2017-05-23] MEDS: oxyCODONE HCL ORAL CONC 5 MG/0.25 ML SYRINGE PO SCH ×6 (00:22→21:19)
[2017-05-23] MEDS: LABETALOL HCL 100 MG/20 ML VIAL IV PUSH PRN ×4 (02:03→21:23)
--- NOTE | 2017-05-23 03:36 | RADRPT ---
EXAM DATE/TIME: 05/23/2017 03:38 [facility] COMPARISON: CHEST SINGLE AP, May 21, 2017, 5:08. INDICATIONS : Short of breath. MEDICAL HISTORY : None. SURGICAL HISTORY : None. ENCOUNTER: Subsequent ACUITY: 1 week PAIN SCORE: 0/10 LOCATION: Bilateral chest FINDINGS: The cardiac silhouette is normal in transverse diameter. Support lines and tubes are in satisfactory position. There is left lower lobe atelectasis versus pneumonia. The right lung is free of acute pare nchymal opacity. There is no evidence of pneumothorax. CONCLUSION: 1. Left lower lobe atelectasis versus pneumonia. There has been no significant change when compared t o the prior exam. 2. There is no evidence of pneumothorax. Tiago Wen MD on May 23, 2017 at 3:34 Board Certified Radiologist. This report was verified electronically.
[2017-05-23] MEDS: CHLORHEXIDINE GLUCONATE 2 % 1 PACK (2 CLOTHS) TOP SCH (04:00)
[2017-05-23 04:40] LABS: AUTOMATED NEUTROPHIL # 14.2 TH/MM3 (1.8-7.7); BASOPHIL # 0.1 TH/MM3 (0-0.2); BASOPHIL % 0.5 % (0.0-2.0); EOSINOPHIL # 0.2 TH/MM3 (0-0.4); HEMO FLAGS DIFF FINAL; LYMPH % 6.9 % (9.0-44.0); LYMPHOCYTE # 1.2 TH/MM3 (1.0-4.8); MEAN CELL VOLUME 82.8 FL (80.0-100.0); MEAN CORPUSCULAR HEMOGLOBIN 26.5 PG (27.0-34.0); NEUT % 80.6 % (16.0-70.0); PLATELET COUNT 248 TH/MM3 (150-450); RED BLOOD COUNT 4.11 MIL/MM3 (4.50-5.90); RED CELL DISTRIBUTION WIDTH 19.2 % (11.6-17.2); WHITE BLOOD COUNT 17.6 TH/MM3 (4.0-11.0)
[2017-05-23 05:04] LABS: BICARBONATE 25.5 MEQ/L (21.0-32.0); POTASSIUM 3.7 MEQ/L (3.5-5.1)
[2017-05-23] MEDS: hydrALAZINE HCL 25 MG TAB PO SCH ×3 (05:41→21:20)
[2017-05-23] MEDS: METHOCARBAMOL 500 MG TAB PO SCH ×3 (05:41→21:20)
[2017-05-23 06:15] LABS: BLOOD GAS CARBOXYHEMOGLOBIN 2.2 % (0-4); BLOOD GAS HCO3 26 mmol/L (22-26); BLOOD GAS METHEMOGLOBIN 0.7 % (0-2); BLOOD GAS O2 HGB SATURATION 95 % (90-100); BLOOD GAS OXYGEN CONTENT 14.3 Vol % (12.0-20.0); BLOOD GAS PCO2 41 mmHg (38-42); BLOOD GAS PO2 93 mmHg (61-120); BLOOD GAS TOTAL HGB 10.6 G/DL (12.0-16.0); CRITICAL VALUE NO; OXYGEN DEVICE VENT; TEMP CORR TO 98.6
[2017-05-23 06:16] LABS: DRAW SITE RT RADIAL; FIO2 35 %; NUMBER OF ARTERIAL PUNCTURES 1; STAT NO; ULNAR PULSE PRESENT
[2017-05-23] MEDS: LIDOCAINE HCL 5% PATCH T-DERMAL SCH ×2 (08:09)
[2017-05-23] MEDS: CHLORHEXIDINE 0.12% (ORAL KIT) 15 ML CUP MT SCH ×2 (08:10→20:00)
[2017-05-23] MEDS: LACTULOSE SYRUP 20 GM/30 ML CUP PO SCH ×2 (08:10→21:00)
[2017-05-23] MEDS: DOCUSATE SODIUM 50 MG/SENNA 8.6 MG TAB PO SCH ×2 (08:10→21:00)
[2017-05-23] MEDS: PANTOPRAZOLE INJ 80 MG in SODIUM CHLORIDE 0.9% INJ 100 ML IV SCH ×2 (08:26→21:51)
[2017-05-23] MEDS ORDERED: FUROSEMIDE 20 MG/2 ML VIAL IV PUSH ONE (10:15)
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
[2017-05-23] MEDS: SODIUM CHLOR 0.9% 1000 ML INJ 1,000 ML IV SCH (11:21)
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
--- NOTE | 2017-05-23 18:01 | RADRPT ---
EXAM DATE/TIME: 05/23/2017 16:59 [facility] COMPARISON: CT ABDOMEN & PELVIS W/O CONTRAST, May 14, 2017, 17:15. INDICATIONS : Jaundice. Elevated bilirubin levels. MEDICAL HISTORY : Pancreatitis. SURGICAL HISTORY : Appendectomy. ENCOUNTER: Subsequent ACUITY: 4-6 days PAIN SCORE: 3/10 LOCATION: abdomen TECHNIQUE: Multiplanar, multisequence magnetic resonance imaging of the abdomen was performed. High-resolution 3D dataset was utilized to reconstruct maximum-intensity projection (MIP) images. FINDINGS: INTRAHEPATIC BILE DUCTS: Within normal limits. No significant anatomical variant is present. EXTRAHEPATIC BILE DUCTS: The common bile duct measures very 6-9 mm No stone or filling defect is identified. GALLBLADDER: No stones, wall thickening, or pericholecystic fluid. LIVER: Normal size and signal intensity. No concerning liver lesion is identified on this non-contrast exam. PANCREAS: The main pancreatic duct is normal in size. There is no significant anatomical variant. Signal inte nsity is within normal limits. No mass is visualized on this non-contrast exam. OTHER: The remaining visualized structures demonstrate no acute abnormality on this non-contrast exam. Ascit ic fluid is noted in the abdomen and CONCLUSION: Common bile duct measures from 6-9 mm in diameter and is otherwise normal with no intrahepatic duct d ilatation. Gallbladder is negative. There is a small amount ascites in the upper abdomen. Jc Lopez MD on May 23, 2017 at 17:56 Board Certified Radiologist. This report was verified electronically.
[2017-05-23] MEDS: MAGNESIUM HYDROXIDE SUSP 30 ML CUP PO SCH (21:00)
[2017-05-23] MEDS: REMOVE OLD LIDOCAINE PATCH T-DERMAL SCH ×2 (21:00→21:20)
[2017-05-23 23:41] LABS: INDIRECT BILIRUBIN 0.8 MG/DL (0.0-0.8); TOTAL BILIRUBIN ADULT 2.4 MG/DL (0.2-1.0)
[2017-05-24] VITALS (14 sets, daily range): BP systolic 138–187; BP diastolic 70–84; PULSE 64–100; RESP 19–25; TEMP 97.8–98.8; O2SAT 92–99
[2017-05-24] MEDS: oxyCODONE HCL ORAL CONC 5 MG/0.25 ML SYRINGE PO SCH ×3 (00:20→08:54)
[2017-05-24] MEDS: hydrALAZINE HCL 20 MG/ML VIAL IV PUSH PRN ×4 (02:06→16:44)
[2017-05-24] MEDS: HYDROmorphone HCL PF 0.5 MG/0.5 ML SYRINGE IV PUSH PRN ×5 (02:22→21:53)
[2017-05-24] MEDS: CHLORHEXIDINE GLUCONATE 2 % 1 PACK (2 CLOTHS) TOP SCH (04:00)
[2017-05-24] MEDS: LABETALOL HCL 100 MG/20 ML VIAL IV PUSH PRN ×2 (04:08→21:53)
[2017-05-24 05:13] LABS: AUTOMATED NEUTROPHIL # 15.3 TH/MM3 (1.8-7.7); BASOPHIL % 0.2 % (0.0-2.0); EOSINOPHIL # 0.2 TH/MM3 (0-0.4); EOSINOPHIL % 1.2 % (0.0-4.0); HEMATOCRIT 35.2 % (39.0-51.0); LYMPH % 7.8 % (9.0-44.0); LYMPHOCYTE # 1.5 TH/MM3 (1.0-4.8); MEAN CELL VOLUME 82.7 FL (80.0-100.0); MEAN CORPUSCULAR HEMOGLOBIN 26.6 PG (27.0-34.0); MEAN CORPUSCULAR HGB CONC 32.2 % (32.0-36.0); MONO % 11.5 % (0.0-8.0); NEUT % 79.3 % (16.0-70.0); PLATELET COUNT 310 TH/MM3 (150-450); RED BLOOD COUNT 4.25 MIL/MM3 (4.50-5.90); RED CELL DISTRIBUTION WIDTH 19.6 % (11.6-17.2); WHITE BLOOD COUNT 19.3 TH/MM3 (4.0-11.0)
[2017-05-24 05:22] LABS: HEMO FLAGS AUTO DIFF
[2017-05-24 05:36] LABS: ALT (GPT) 25 U/L (12-78); ANION GAP 10 MEQ/L (5-15); AST (GOT) 35 U/L (15-37); BICARBONATE 27.1 MEQ/L (21.0-32.0); BLOOD UREA NITROGEN 15 MG/DL (7-18); CHLORIDE 106 MEQ/L (98-107); GLOMERULAR FILTRATION RATE 167 ML/MIN (>89); POTASSIUM 3.4 MEQ/L (3.5-5.1); SODIUM (NA) 143 MEQ/L (136-145)
[2017-05-24 05:37] LABS: ALKALINE PHOSPHATASE 394 U/L (45-117); TOTAL BILIRUBIN ADULT 2.3 MG/DL (0.2-1.0)
[2017-05-24] MEDS: METHOCARBAMOL 500 MG TAB PO SCH ×3 (05:37→21:53)
[2017-05-24] MEDS: hydrALAZINE HCL 25 MG TAB PO SCH ×3 (05:37→21:52)
--- NOTE | 2017-05-24 06:31 | RADRPT ---
EXAM DATE/TIME: 05/24/2017 05:59 [facility] COMPARISON: CHEST SINGLE AP, May 23, 2017, 3:38. INDICATIONS : Short of breath. MEDICAL HISTORY : None. SURGICAL HISTORY : None. ENCOUNTER: Subsequent ACUITY: 1 week PAIN SCORE: Non-responsive. LOCATION: Bilateral chest FINDINGS: The cardiac silhouette is enlarged in transverse diameter. There is bilateral lower lobe atelectasis versus pneumonia right greater than left. Moderate size bilateral pleural effusions are identified. Endotracheal tube has been removed. CONCLUSION: 1. Worsening bibasilar atelectasis and effusions Tiago Wen MD on May 24, 2017 at 6:28 Board Certified Radiologist. This report was verified electronically.
[2017-05-24 07:11] LABS: PLATELET ESTIMATE SMEAR NORMAL (NORMAL); PLATELET MORPHOLOGY ENLARGED (NORMAL); SCAN/DIFF AUTO DIFF CONFIRMED
[2017-05-24 07:12] LABS: ACANTHOCYTES OCC (NORMAL); TARGET CELLS 1+ (NORMAL)
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
[2017-05-24] MEDS: PANTOPRAZOLE INJ 80 MG in SODIUM CHLORIDE 0.9% INJ 100 ML IV SCH ×2 (08:01→14:00)
[2017-05-24] MEDS: DOCUSATE SODIUM 50 MG/SENNA 8.6 MG TAB PO SCH ×2 (08:54→21:52)
[2017-05-24] MEDS: LACTULOSE SYRUP 20 GM/30 ML CUP PO SCH ×2 (08:54→21:00)
[2017-05-24] MEDS: LIDOCAINE HCL 5% PATCH T-DERMAL SCH (08:55)
[2017-05-24] MEDS ORDERED: ONDANSETRON HCL 4 MG/2 ML VIAL IV PUSH PRN (10:00)
[2017-05-24] MEDS ORDERED: Vancomycin Consult Pharmacy 1 EA OTHER SCH (10:15)
[2017-05-24] MEDS ORDERED: VANCOMYCIN INJ 1,000 MG in SODIUM CHLOR 0.9% 250 ML INJ 250 ML IV ONE (11:00)
[2017-05-24] MEDS: LEVOFLOXACIN 500 MG PREMIX INJ 100 ML IV SCH (11:41)
[2017-05-24] MEDS: VANCOMYCIN INJ 1,500 MG in SODIUM CHLORID 0.9% 500 ML INJ 500 ML IV SCH (13:06)
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
[2017-05-24] MEDS: CEFEPIME INJ 2,000 MG in SODIUM CHLORIDE 0.9% INJ 100 ML IV SCH ×2 (16:44→23:31)
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
[2017-05-24] MEDS: MAGNESIUM HYDROXIDE SUSP 30 ML CUP PO SCH (21:00)
[2017-05-24] MEDS: REMOVE OLD LIDOCAINE PATCH T-DERMAL SCH (21:54)
[2017-05-25] VITALS (14 sets, daily range): BP systolic 158–185; BP diastolic 76–88; PULSE 68–88; RESP 21–26; TEMP 98.5–99.6; O2SAT 93–99
[2017-05-25] MEDS: VANCOMYCIN INJ 1,500 MG in SODIUM CHLORID 0.9% 500 ML INJ 500 ML IV SCH ×2 (01:14→12:56)
[2017-05-25] MEDS: PANTOPRAZOLE INJ 80 MG in SODIUM CHLORIDE 0.9% INJ 100 ML IV SCH (03:45)
[2017-05-25] MEDS: HYDROmorphone HCL PF 0.5 MG/0.5 ML SYRINGE IV PUSH PRN ×3 (03:45→21:48)
[2017-05-25] MEDS: LABETALOL HCL 100 MG/20 ML VIAL IV PUSH PRN ×2 (03:46→23:26)
[2017-05-25] MEDS: CHLORHEXIDINE GLUCONATE 2 % 1 PACK (2 CLOTHS) TOP SCH (04:00)
[2017-05-25 05:07] LABS: AUTOMATED NEUTROPHIL # 14.9 TH/MM3 (1.8-7.7); BASOPHIL # 0.1 TH/MM3 (0-0.2); BASOPHIL % 0.4 % (0.0-2.0); EOSINOPHIL # 0.1 TH/MM3 (0-0.4); EOSINOPHIL % 0.6 % (0.0-4.0); HEMATOCRIT 32.8 % (39.0-51.0); HEMO FLAGS DIFF FINAL; LYMPH % 7.4 % (9.0-44.0); LYMPHOCYTE # 1.4 TH/MM3 (1.0-4.8); MEAN CELL VOLUME 83.2 FL (80.0-100.0); MEAN CORPUSCULAR HGB CONC 32.5 % (32.0-36.0); MONO % 11.4 % (0.0-8.0); NEUT % 80.2 % (16.0-70.0); PLATELET COUNT 332 TH/MM3 (150-450); RED BLOOD COUNT 3.94 MIL/MM3 (4.50-5.90); RED CELL DISTRIBUTION WIDTH 20.3 % (11.6-17.2); WHITE BLOOD COUNT 18.5 TH/MM3 (4.0-11.0)
[2017-05-25 05:31] LABS: ALT (GPT) 22 U/L (12-78); ANION GAP 8 MEQ/L (5-15); AST (GOT) 31 U/L (15-37); BICARBONATE 27.4 MEQ/L (21.0-32.0); BLOOD UREA NITROGEN 18 MG/DL (7-18); CHLORIDE 110 MEQ/L (98-107); GLOMERULAR FILTRATION RATE 139 ML/MIN (>89); POTASSIUM 3.2 MEQ/L (3.5-5.1); SODIUM (NA) 145 MEQ/L (136-145)
[2017-05-25 05:33] LABS: ALKALINE PHOSPHATASE 346 U/L (45-117); TOTAL BILIRUBIN ADULT 1.6 MG/DL (0.2-1.0)
[2017-05-25] MEDS: hydrALAZINE HCL 25 MG TAB PO SCH ×3 (05:45→20:22)
[2017-05-25] MEDS: METHOCARBAMOL 500 MG TAB PO SCH ×3 (05:45→20:22)
--- NOTE | 2017-05-25 06:25 | RADRPT ---
EXAM DATE/TIME: 05/25/2017 06:06 [facility] COMPARISON: CHEST SINGLE AP, May 24, 2017, 5:59. INDICATIONS : Follow up trauma. MEDICAL HISTORY : None. SURGICAL HISTORY : None. ENCOUNTER: Subsequent ACUITY: 1 week PAIN SCORE: Non-responsive. LOCATION: Bilateral chest FINDINGS: A single view of the chest demonstrates bibasilar densities and pleural effusions. Heart borderline e nlarged. Osseous structures are intact. CONCLUSION: Stable bibasilar densities. Eldon Lacy MD on May 25, 2017 at 6:24 Board Certified Radiologist. This report was verified electronically.
[2017-05-25] MEDS: CEFEPIME INJ 2,000 MG in SODIUM CHLORIDE 0.9% INJ 100 ML IV SCH ×3 (07:09→22:22)
[2017-05-25] MEDS: DOCUSATE SODIUM 50 MG/SENNA 8.6 MG TAB PO SCH ×2 (07:28→20:02)
[2017-05-25] MEDS: LACTULOSE SYRUP 20 GM/30 ML CUP PO SCH ×2 (07:28→20:02)
[2017-05-25] MEDS: POTASSIUM CHLOR 20 MEQ PREMIX 100 ML IV PRN ×4 (07:29→13:46)
[2017-05-25] MEDS: LIDOCAINE HCL 5% PATCH T-DERMAL SCH (07:29)
[2017-05-25] MEDS: oxyCODONE HCL ORAL CONC 5 MG/0.25 ML SYRINGE PO PRN ×3 (09:29→20:03)
[2017-05-25] MEDS ORDERED: PANTOPRAZOLE SODIUM 40 MG VIAL IV PUSH SCH (10:00)
[2017-05-25] MEDS: LEVOFLOXACIN 500 MG PREMIX INJ 100 ML IV SCH (11:02)
[2017-05-25] MEDS: ENOXAPARIN SODIUM 40 MG/0.4 ML SYRINGE SQ SCH (11:02)
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
[2017-05-25] MEDS: hydrALAZINE HCL 20 MG/ML VIAL IV PUSH PRN ×2 (13:06→17:45)
[2017-05-25] MEDS: MAGNESIUM HYDROXIDE SUSP 30 ML CUP PO SCH (20:02)
[2017-05-25] MEDS: PANTOPRAZOLE SOD 40 MG DELAYED RELEASE TAB PO SCH (20:22)
[2017-05-25] MEDS: REMOVE OLD LIDOCAINE PATCH T-DERMAL SCH (20:23)
[2017-05-26] VITALS (13 sets, daily range): BP systolic 148–186; BP diastolic 68–88; PULSE 57–86; RESP 19–27; TEMP 98.3–99.1; O2SAT 93–100
[2017-05-26] MEDS ORDERED: PHARMACY ORDERED LAB ONE (00:45)
[2017-05-26] MEDS: hydrALAZINE HCL 20 MG/ML VIAL IV PUSH PRN ×2 (01:06→22:29)
[2017-05-26] MEDS: LABETALOL HCL 100 MG/20 ML VIAL IV PUSH PRN (02:10)
--- NOTE | 2017-05-26 03:57 | RADRPT ---
EXAM DATE/TIME: 05/26/2017 04:07 [facility] COMPARISON: CHEST SINGLE AP, May 25, 2017, 6:06. INDICATIONS : Shortness of breath MEDICAL HISTORY : None. SURGICAL HISTORY : None. ENCOUNTER: Subsequent ACUITY: 1 week PAIN SCORE: Non-responsive. LOCATION: Bilateral chest FINDINGS: A single AP semierect view of the chest was obtained and again demonstrates abnormal opacity in the r ight lung greatest at the right lung base with obscuration of the right costophrenic angle. There is abnormal opacity in the left lung base with obscuration of the left hemidiaphragm. The heart size rem ains mildly prominent. There are multiple overlying electrocardiogram leads and oxygen tubing. CONCLUSION: No significant change. Anand Duncan MD on May 26, 2017 at 3:55 Board Certified Radiologist. This report was verified electronically.
[2017-05-26] MEDS: CHLORHEXIDINE GLUCONATE 2 % 1 PACK (2 CLOTHS) TOP SCH (04:00)
[2017-05-26] MEDS: hydrALAZINE HCL 25 MG TAB PO SCH ×3 (04:43→22:09)
[2017-05-26] MEDS: METHOCARBAMOL 500 MG TAB PO SCH ×3 (04:43→22:09)
[2017-05-26] MEDS: oxyCODONE HCL ORAL CONC 5 MG/0.25 ML SYRINGE PO PRN ×2 (04:44→15:57)
[2017-05-26] MEDS: CEFEPIME INJ 2,000 MG in SODIUM CHLORIDE 0.9% INJ 100 ML IV SCH ×2 (06:53→15:55)
[2017-05-26 07:36] LABS: AUTOMATED NEUTROPHIL # 11.7 TH/MM3 (1.8-7.7); BASOPHIL # 0.1 TH/MM3 (0-0.2); BASOPHIL % 0.4 % (0.0-2.0); EOSINOPHIL # 0.2 TH/MM3 (0-0.4); EOSINOPHIL % 1.4 % (0.0-4.0); HEMATOCRIT 32.6 % (39.0-51.0); LYMPHOCYTE # 1.6 TH/MM3 (1.0-4.8); MEAN CELL VOLUME 83.4 FL (80.0-100.0); MEAN CORPUSCULAR HGB CONC 32.4 % (32.0-36.0); MONO % 14.1 % (0.0-8.0); NEUT % 74.1 % (16.0-70.0); PLATELET COUNT 343 TH/MM3 (150-450); RED BLOOD COUNT 3.91 MIL/MM3 (4.50-5.90); RED CELL DISTRIBUTION WIDTH 19.5 % (11.6-17.2); WHITE BLOOD COUNT 15.8 TH/MM3 (4.0-11.0)
[2017-05-26 07:37] LABS: HEMO FLAGS AUTO DIFF
[2017-05-26] MEDS: LACTULOSE SYRUP 20 GM/30 ML CUP PO SCH ×2 (08:22→20:17)
[2017-05-26] MEDS: LIDOCAINE HCL 5% PATCH T-DERMAL SCH (08:22)
[2017-05-26] MEDS: DOCUSATE SODIUM 50 MG/SENNA 8.6 MG TAB PO SCH ×2 (08:22→20:18)
[2017-05-26] MEDS: PANTOPRAZOLE SOD 40 MG DELAYED RELEASE TAB PO SCH ×2 (08:22→20:18)
[2017-05-26 08:50] LABS: SCAN/DIFF AUTO DIFF CONFIRMED; TARGET CELLS 1+ (NORMAL)
[2017-05-26] MEDS: ENOXAPARIN SODIUM 40 MG/0.4 ML SYRINGE SQ SCH (09:11)
[2017-05-26] MEDS: HYDROmorphone HCL PF 0.5 MG/0.5 ML SYRINGE IV PUSH PRN (09:11)
[2017-05-26] MEDS ORDERED: RESP: ALBUTEROL 2.5 MG/IPRATROPIUM 0.5 MG NEB (PRN) NEB (10:15)
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
[2017-05-26] MEDS: guaiFENesin E.R. 600 MG TAB PO SCH ×2 (11:37→20:17)
[2017-05-26] MEDS: METOPROLOL SUCCINATE 25 MG EXTENDED RELEASE TAB PO SCH (11:37)
[2017-05-26] MEDS: LEVOFLOXACIN 500 MG PREMIX INJ 100 ML IV SCH (11:38)
[2017-05-26 11:59] LABS: ANION GAP 9 MEQ/L (5-15); AST (GOT) 30 U/L (15-37); BLOOD UREA NITROGEN 16 MG/DL (7-18); CHLORIDE 109 MEQ/L (98-107); GLOMERULAR FILTRATION RATE 126 ML/MIN (>89); POTASSIUM 3.5 MEQ/L (3.5-5.1); SODIUM (NA) 143 MEQ/L (136-145)
[2017-05-26 12:00] LABS: ALT (GPT) 23 U/L (12-78)
[2017-05-26 12:02] LABS: ALKALINE PHOSPHATASE 333 U/L (45-117); TOTAL BILIRUBIN ADULT 1.7 MG/DL (0.2-1.0)
[2017-05-26] MEDS: RESP: ALBUTEROL 2.5 MG/IPRATROPIUM 0.5 MG NEB (SCH) NEB ×2 (15:54→20:44)
[2017-05-26] MEDS: LINEZOLID 600 MG TAB PO SCH (15:55)
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
[2017-05-26] MEDS: MAGNESIUM HYDROXIDE SUSP 30 ML CUP PO SCH (20:17)
[2017-05-26] MEDS: REMOVE OLD LIDOCAINE PATCH T-DERMAL SCH (21:00)
[2017-05-27] VITALS (14 sets, daily range): BP systolic 159–185; BP diastolic 71–81; PULSE 61–100; RESP 17–24; TEMP 98.1–98.7; O2SAT 95–100
[2017-05-27] MEDS: hydrALAZINE HCL 20 MG/ML VIAL IV PUSH PRN (01:13)
[2017-05-27] MEDS: RESP: ALBUTEROL 2.5 MG/IPRATROPIUM 0.5 MG NEB (SCH) NEB ×4 (01:33→21:53)
[2017-05-27] MEDS: LINEZOLID 600 MG TAB PO SCH ×2 (03:20→15:07)
[2017-05-27] MEDS: CHLORHEXIDINE GLUCONATE 2 % 1 PACK (2 CLOTHS) TOP SCH (04:00)
[2017-05-27] MEDS: METHOCARBAMOL 500 MG TAB PO SCH ×3 (05:14→20:33)
[2017-05-27] MEDS: hydrALAZINE HCL 25 MG TAB PO SCH ×3 (05:14→22:05)
[2017-05-27] MEDS: PANTOPRAZOLE SOD 40 MG DELAYED RELEASE TAB PO SCH ×2 (07:37→20:33)
[2017-05-27] MEDS: LEVOFLOXACIN 750 MG TAB PO SCH (07:37)
[2017-05-27] MEDS: oxyCODONE HCL ORAL CONC 5 MG/0.25 ML SYRINGE PO PRN (07:38)
[2017-05-27] MEDS: DOCUSATE SODIUM 50 MG/SENNA 8.6 MG TAB PO SCH ×2 (07:38→20:34)
[2017-05-27] MEDS: guaiFENesin E.R. 600 MG TAB PO SCH ×2 (07:38→20:34)
[2017-05-27] MEDS: METOPROLOL SUCCINATE 25 MG EXTENDED RELEASE TAB PO SCH (07:38)
[2017-05-27] MEDS: LIDOCAINE HCL 5% PATCH T-DERMAL SCH (07:38)
[2017-05-27] MEDS: LACTULOSE SYRUP 20 GM/30 ML CUP PO SCH ×2 (07:39→20:34)
[2017-05-27] MEDS: ENOXAPARIN SODIUM 40 MG/0.4 ML SYRINGE SQ SCH (10:04)
[2017-05-27] MEDS ORDERED: oxyCODONE/ACETAMINOPHEN 5 MG/325 MG TAB PO PRN (11:00)
[2017-05-27] MEDS: oxyCODONE/ACETAMINOPHEN 10 MG/325 MG TAB PO PRN ×3 (13:32→23:42)
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
[2017-05-27] MEDS ORDERED: ENALAPRILAT 1.25 MG/ML VIAL IV PUSH PRN (16:00)
[2017-05-27] MEDS: ATENOLOL 25 MG TAB PO SCH (20:33)
[2017-05-27] MEDS: MAGNESIUM HYDROXIDE SUSP 30 ML CUP PO SCH (20:34)
[2017-05-28] VITALS (9 sets, daily range): BP systolic 134–187; BP diastolic 63–89; PULSE 60–76; RESP 19–22; TEMP 98.4–98.7; O2SAT 93–97
[2017-05-28] MEDS: LINEZOLID 600 MG TAB PO SCH ×2 (04:20→14:56)
[2017-05-28] MEDS: oxyCODONE/ACETAMINOPHEN 10 MG/325 MG TAB PO PRN ×4 (04:21→18:46)
[2017-05-28 04:24] LABS: AUTOMATED NEUTROPHIL # 8.8 TH/MM3 (1.8-7.7); BASOPHIL # 0.1 TH/MM3 (0-0.2); BASOPHIL % 0.6 % (0.0-2.0); EOSINOPHIL # 0.4 TH/MM3 (0-0.4); EOSINOPHIL % 3.4 % (0.0-4.0); HEMO FLAGS DIFF FINAL; LYMPH % 14.5 % (9.0-44.0); LYMPHOCYTE # 1.9 TH/MM3 (1.0-4.8); MEAN CELL VOLUME 83.3 FL (80.0-100.0); MEAN CORPUSCULAR HEMOGLOBIN 26.7 PG (27.0-34.0); MEAN CORPUSCULAR HGB CONC 32.1 % (32.0-36.0); MONO % 14.8 % (0.0-8.0); NEUT % 66.7 % (16.0-70.0); PLATELET COUNT 368 TH/MM3 (150-450); WHITE BLOOD COUNT 13.2 TH/MM3 (4.0-11.0)
[2017-05-28 04:53] LABS: ALKALINE PHOSPHATASE 309 U/L (45-117); ALT (GPT) 20 U/L (12-78); ANION GAP 8 MEQ/L (5-15); AST (GOT) 32 U/L (15-37); BLOOD UREA NITROGEN 12 MG/DL (7-18); CHLORIDE 107 MEQ/L (98-107); GLOMERULAR FILTRATION RATE 121 ML/MIN (>89); POTASSIUM 3.7 MEQ/L (3.5-5.1); SODIUM (NA) 141 MEQ/L (136-145); TOTAL BILIRUBIN ADULT 1.2 MG/DL (0.2-1.0)
[2017-05-28] MEDS: RESP: ALBUTEROL 2.5 MG/IPRATROPIUM 0.5 MG NEB (SCH) NEB ×4 (05:11→19:31)
[2017-05-28] MEDS: METHOCARBAMOL 500 MG TAB PO SCH ×3 (05:32→22:28)
[2017-05-28] MEDS: hydrALAZINE HCL 25 MG TAB PO SCH ×3 (05:32→22:28)
[2017-05-28] MEDS: PANTOPRAZOLE SOD 40 MG DELAYED RELEASE TAB PO SCH ×2 (08:36→20:50)
[2017-05-28] MEDS: LEVOFLOXACIN 750 MG TAB PO SCH (08:36)
[2017-05-28] MEDS: guaiFENesin E.R. 600 MG TAB PO SCH ×2 (08:36→20:50)
[2017-05-28] MEDS: ATENOLOL 25 MG TAB PO SCH ×2 (08:36→20:52)
[2017-05-28] MEDS: ENOXAPARIN SODIUM 40 MG/0.4 ML SYRINGE SQ SCH (08:37)
[2017-05-28] MEDS: LIDOCAINE HCL 5% PATCH T-DERMAL SCH (08:37)
[2017-05-28] MEDS: DOCUSATE SODIUM 50 MG/SENNA 8.6 MG TAB PO SCH ×2 (08:39→20:53)
[2017-05-28] MEDS: LACTULOSE SYRUP 20 GM/30 ML CUP PO SCH ×2 (08:39→20:52)
[2017-05-28 14:31] LABS: MAGNESIUM 2.1 MG/DL (1.5-2.5)
--- NOTE | 2017-05-28 14:55 | HHI.PR ---
Subjective Subjective Notes Complains of 03/15 pain RN reports patient had a run of [employer] on tele. Denies CP or SOB Objective Vitals/I&O Vital Signs Date Time Temp Pulse Resp B/P (MAP) Pulse Ox O2 Delivery O2 Flow Rate FiO2 05/28/17 11:54 98.7 76 20 151/74 (99) 95 05/28/17 09:42 Nasal Cannula 3.00 05/27/17 01:34 35 Labs Laboratory Tests Test 05/28/17 04:15 White Blood Count 13.2 Red Blood Count 4.20 Hemoglobin 11.2 Hematocrit 35.0 Mean Corpuscular Volume 83.3 Mean Corpuscular Hemoglobin 26.7 Mean Corpuscular Hemoglobin Concent 32.1 Red Cell Distribution Width 20.0 Platelet Count 368 Mean Platelet Volume 9.0 Neutrophils (%) (Auto) 66.7 Lymphocytes (%) (Auto) 14.5 Monocytes (%) (Auto) 14.8 Eosinophils (%) (Auto) 3.4 Basophils (%) (Auto) 0.6 Neutrophils # (Auto) 8.8 Lymphocytes # (Auto) 1.9 Monocytes # (Auto) 2.0 Eosinophils # (Auto) 0.4 Basophils # (Auto) 0.1 CBC Comment DIFF FINAL Differential Comment Blood Urea Nitrogen 12 Creatinine 0.78 Random Glucose 95 Total Protein 6.5 Albumin 2.7 Calcium Level 8.6 Alkaline Phosphatase 309 Aspartate Amino Transf (AST/SGOT) 32 Alanine Aminotransferase (ALT/SGPT) 20 Total Bilirubin 1.2 Sodium Level 141 Potassium Level 3.7 Chloride Level 107 Carbon Dioxide Level 26.0 Anion Gap 8 Estimat Glomerular Filtration Rate 121 Phosphorus Level 2.6 Magnesium Level 2.1 Date/Time Source Procedure Growth Status 05/24/17 04:48 Blood Peripheral Aerobic Blood Culture - Preliminary NO GROWTH IN 4 DAYS Resulted 05/24/17 04:48 Blood Peripheral Anaerobic Blood Culture - Preliminary NO GROWTH IN 4 DAYS Resulted 05/23/17 10:25 Sputum Endotracheal Gram Stain - Final Complete 05/23/17 10:25 Sputum Culture - Final Enterobacter Aerogenes Staph Schleiferi Coagulans S. Aureus Mrsa Complete 05/24/17 08:59 Urine Catheterized Urine Urine Culture - Final Enterobacter Aerogenes Complete Radiology Last 48 hours Impressions Chest X-Ray 05/15/17 0600 Signed Impressions: Service Date/Time: Monday, May 15, 2017 04:54 - CONCLUSION: Slight interval improvement in aeration. Min Damon MD Chest X-Ray 05/14/17 0000 Signed Impressions: Service Date/Time: Sunday, May 14, 2017 04:30 - CONCLUSION: No significant change Min Damon MD Chest CT 05/14/17 0000 Signed Impressions: Service Date/Time: Sunday, May 14, 2017 17:15 - CONCLUSION: Trace pneumothorax on the right in spite of chest tube Increasing bibasal consolidative changes in both base is. Multiple bilateral rib fractures Trace pericardial effusion. Kevin Moe MD FACR Abdomen/Pelvis CT 05/14/17 0000 Signed Impressions: Service Date/Time: Sunday, May 14, 2017 17:15 - CONCLUSION: Mesenteric edema/ induration upper abdomen Trace free fluid in the abdomen There is no retroperitoneal There is no free air Kevin Moe MD FACR Chest X-Ray 05/13/17 2200 Signed Impressions: Service Date/Time: Saturday, May 13, 2017 23:13 - CONCLUSION: Satisfactory ET tube positioning. Slight interval worsening in basilar aeration Min Damon MD Pelvis X-Ray 05/13/17 1626 Signed Impressions: Service Date/Time: Saturday, May 13, 2017 16:13 - CONCLUSION: No acute disease. Yuriy Desouza MD Head CT 05/13/17 162 Signed Impressions: Service Date/Time: Saturday, May 13, 2017 16:49 - CONCLUSION: 1. Remote right frontal lacunar infarct. No intracranial hemorrhage. Yuriy Desouza MD Chest X-Ray 05/13/17 162 Signed Impressions: Service Date/Time: Saturday, May 13, 2017 16:13 - CONCLUSION: There is a fracture of the right second posterior rib and a possible right apical pneumothorax. Extensive subcutaneous emphysema along the right axillary region identified. A CT chest is pending. Yuriy Desouza MD Chest CT 05/13/17 162 Signed Impressions: Service Date/Time: Saturday, May 13, 2017 16:57 - CONCLUSION: Anterior mediastinal hematoma with active contrast extravasation, however no signs of aortic or brachiocephalic arterial injury. Bony injuries including sternal fracture. Small residual anterior right base pneumothorax. Min Damon MD Cervical Spine CT 05/13/176 Signed Impressions: Service Date/Time: Saturday, May 13, 2017 16:51 - CONCLUSION: Prominent degenerative changes. No definite acute bony injury in the cervical spine. Right chest injuries. Min Damon MD Abdomen/Pelvis CT 05/13/171625 Signed Impressions: Service Date/Time: Saturday, May 13, 2017 16:57 - CONCLUSION: Evidence of traumatic injury in the right chest. Small focus of unexplained air along the anterior aspect of the distal body of pancreas and small peripancreatic density which may be contusion. Otherwise no acute injury seen in the abdomen or pelvis Min Damon MD Narrative Exam GENERAL: 66-year-old well-nourished, well developed male lying in bed. SKIN: Warm and dry. HEAD: Normocephalic. EYES: PERRL. ENT: No nasal bleeding or discharge. Mucous membranes pink and moist. NECK: Trachea midline. No JVD. CARDIOVASCULAR: Regular rate and rhythm. RESPIRATORY: No accessory muscle use. Lungs clear and diminished to auscultation. Breath sounds equal bilaterally. GASTROINTESTINAL: Abdomen soft, non-tender, nondistended. + BS. MUSCULOSKELETAL: Extremities without cyanosis, or edema. MAEW. + perfused NEUROLOGICAL: Awake and alert. Normal speech. A/P Assessment and Plan INJURIES: RIGHT front scalp foreign body RIGHT clavicle fx (non-op) Sternal fx Anterior mediastinal hematoma LEFT rib fxs (multiple) RIGHT rib fxs (multiple anterior & posterior-flail chest) RIGHT PTX ? pancreatic contusion 05/13: RIGHT CT in the ED 05/21: EGD w/ clips 05/22: RIGHT CT removed 05/23: Extubated Diet: PUREED ADA w/ nectar thick. ST swallow. Pulm: IS, Acapella, EZ-pap. nebs. Mucinex Pain: Percocet. Dilaudid IV. Robaxin. Lidoderm patch. Activity: OOB. PT and OT ordered. (NWB RUE) GI: Protonix 40 mg PO BID. Bowel: Sonja-colace BID. MOM. Lactulose BID. Dulcolax PRN. LBM: 10/22 DVT: SCD's. Lovenox 40 q day RIGHT clavicle fx Orthopedics consulted Non-operative management Pain control Sling Sternal fx, Anterior mediastinal hematoma, LEFT rib fxs, RIGHT rib fxs, RIGHT PTX, Respiratory failure Supportive care 05/13: RIGHT CT in the ED 05/22: RIGHT CT removed 05/23: Extubated 05/23: Sputum - MRSA, Enterobacter Aerogenes 05/24: Urine - Enterobacter Aerogenes ID consulted Abx: PO Levaquin. Zyvox O2 as needed Pain control Pulmonary toileting OOB- PT ordered- recommend rehab Pancreatic contusion Supportive care Monitor LFTs HTN Hydralazine 25mg q8h Atenolol 25 BID PRN Vasotec GIB GI consulted 05/21: EGD w/ clips 05/23: MRCP - Normal, small amt of ascites PO Protonix No further GIB Plan of care discussed with patient at bedside. Case management consulted to assist with discharge planning. Randall evaluating for possible placement. The exam, history, and the medical decision-making described in the above note were completed with the assistance of the mid-level provider. I reviewed and agree with the findings presented. I attest that I had a [id number] encounter with the patient on the same day, and personally performed and documented my assessment and findings in the medical record. Ismael Gonzales May 28, 2017 14:55 Boo Rodriguez MD May 30, 2017 13:03
[2017-05-28] MEDS ORDERED: fentaNYL 25 MCG/HR PATCH T-DERMAL SCH (16:00)
[2017-05-28] MEDS: MAGNESIUM HYDROXIDE SUSP 30 ML CUP PO SCH (20:52)
[2017-05-28] MEDS: REMOVE OLD LIDOCAINE PATCH T-DERMAL SCH (21:00)
[2017-05-29] VITALS (10 sets, daily range): BP systolic 131–175; BP diastolic 62–82; PULSE 66–77; RESP 19–20; TEMP 98.3–98.9; O2SAT 90–97
[2017-05-29] MEDS: LINEZOLID 600 MG TAB PO SCH ×2 (03:07→15:23)
[2017-05-29] MEDS: RESP: ALBUTEROL 2.5 MG/IPRATROPIUM 0.5 MG NEB (SCH) NEB ×4 (04:20→21:08)
[2017-05-29] MEDS: METHOCARBAMOL 500 MG TAB PO SCH ×3 (05:32→22:35)
[2017-05-29] MEDS: hydrALAZINE HCL 25 MG TAB PO SCH ×3 (05:32→22:38)
[2017-05-29] MEDS: guaiFENesin E.R. 600 MG TAB PO SCH ×2 (08:22→22:37)
[2017-05-29] MEDS: LEVOFLOXACIN 750 MG TAB PO SCH (08:23)
[2017-05-29] MEDS: ATENOLOL 25 MG TAB PO SCH ×2 (08:23→23:34)
[2017-05-29] MEDS: PANTOPRAZOLE SOD 40 MG DELAYED RELEASE TAB PO SCH ×2 (08:23→22:37)
[2017-05-29] MEDS: oxyCODONE/ACETAMINOPHEN 10 MG/325 MG TAB PO PRN ×4 (08:25→20:38)
[2017-05-29] MEDS: LIDOCAINE HCL 5% PATCH T-DERMAL SCH (08:35)
[2017-05-29] MEDS: LACTULOSE SYRUP 20 GM/30 ML CUP PO SCH ×2 (09:00→22:33)
[2017-05-29] MEDS: DOCUSATE SODIUM 50 MG/SENNA 8.6 MG TAB PO SCH ×2 (09:00→22:36)
[2017-05-29] MEDS: ENOXAPARIN SODIUM 40 MG/0.4 ML SYRINGE SQ SCH (12:15)
--- NOTE | 2017-05-29 15:54 | HHI.PR ---
Subjective Subjective Notes Pain better controlled today Awaiting insurance authorization for rehabilitation placement Objective Vitals/I&O Vital Signs Date Time Temp Pulse Resp B/P (MAP) Pulse Ox O2 Delivery O2 Flow Rate FiO2 05/29/17 13:10 98.7 72 20 175/82 (113) 96 05/29/17 08:00 Nasal Cannula 3.00 05/27/17 01:34 35 Labs Date/Time Source Procedure Growth Status 05/24/17 04:48 Blood Peripheral Aerobic Blood Culture - Final NO GROWTH IN 5 DAYS Complete 05/24/17 04:48 Blood Peripheral Anaerobic Blood Culture - Final NO GROWTH IN 5 DAYS Complete 05/23/17 10:25 Sputum Endotracheal Gram Stain - Final Complete 05/23/17 10:25 Sputum Culture - Final Enterobacter Aerogenes Complete 05/24/17 08:59 Urine Catheterized Urine Urine Culture - Final Enterobacter Aerogenes Complete Radiology Last 48 hours Impressions Chest X-Ray 05/15/17 0600 Signed Impressions: Service Date/Time: Monday, May 15, 2017 04:54 - CONCLUSION: Slight interval improvement in aeration. Min Damon MD Chest X-Ray 05/14/17 0000 Signed Impressions: Service Date/Time: Sunday, May 14, 2017 04:30 - CONCLUSION: No significant change Min Damon MD Chest CT 05/14/17 0000 Signed Impressions: Service Date/Time: Sunday, May 14, 2017 17:15 - CONCLUSION: Trace pneumothorax on the right in spite of chest tube Increasing bibasal consolidative changes in both base is. Multiple bilateral rib fractures Trace pericardial effusion. Kevin Moe MD FACR Abdomen/Pelvis CT 05/14/17 0000 Signed Impressions: Service Date/Time: Sunday, May 14, 2017 17:15 - CONCLUSION: Mesenteric edema/ induration upper abdomen Trace free fluid in the abdomen There is no retroperitoneal There is no free air Kevin Moe MD FACR Chest X-Ray 05/13/17 2200 Signed Impressions: Service Date/Time: Saturday, May 13, 2017 23:13 - CONCLUSION: Satisfactory ET tube positioning. Slight interval worsening in basilar aeration Min Damon MD Pelvis X-Ray 05/13/171625 Signed Impressions: Service Date/Time: Saturday, May 13, 2017 16:13 - CONCLUSION: No acute disease. Yuriy Desouza MD Head CT 05/13/171625 Signed Impressions: Service Date/Time: Saturday, May 13, 2017 16:49 - CONCLUSION: 1. Remote right frontal lacunar infarct. No intracranial hemorrhage. Yuriy Desouza MD Chest X-Ray 05/13/171625 Signed Impressions: Service Date/Time: Saturday, May 13, 2017 16:13 - CONCLUSION: There is a fracture of the right second posterior rib and a possible right apical pneumothorax. Extensive subcutaneous emphysema along the right axillary region identified. A CT chest is pending. Yuriy Desouza MD Chest CT 05/13/171625 Signed Impressions: Service Date/Time: Saturday, May 13, 2017 16:57 - CONCLUSION: Anterior mediastinal hematoma with active contrast extravasation, however no signs of aortic or brachiocephalic arterial injury. Bony injuries including sternal fracture. Small residual anterior right base pneumothorax. Min Damon MD Cervical Spine CT 05/13/171625 Signed Impressions: Service Date/Time: Saturday, May 13, 2017 16:51 - CONCLUSION: Prominent degenerative changes. No definite acute bony injury in the cervical spine. Right chest injuries. Min Damon MD Abdomen/Pelvis CT 05/13/171625 Signed Impressions: Service Date/Time: Saturday, May 13, 2017 16:57 - CONCLUSION: Evidence of traumatic injury in the right chest. Small focus of unexplained air along the anterior aspect of the distal body of pancreas and small peripancreatic density which may be contusion. Otherwise no acute injury seen in the abdomen or pelvis Min Damon MD Narrative Exam GENERAL: 66-year-old well-nourished, well developed male lying in bed. SKIN: Warm and dry. HEAD: Normocephalic. EYES: PERRL. ENT: No nasal bleeding or discharge. Mucous membranes pink and moist. NECK: Trachea midline. No JVD. CARDIOVASCULAR: Regular rate and rhythm. RESPIRATORY: No accessory muscle use. Lungs clear and diminished to auscultation. Breath sounds equal bilaterally. GASTROINTESTINAL: Abdomen soft, non-tender, nondistended. + BS. MUSCULOSKELETAL: Extremities without cyanosis, or edema. MAEW. + perfused NEUROLOGICAL: Awake and alert. Normal speech. A/P Assessment and Plan INJURIES: RIGHT front scalp foreign body RIGHT clavicle fx (non-op) Sternal fx Anterior mediastinal hematoma LEFT rib fxs (multiple) RIGHT rib fxs (multiple anterior & posterior-flail chest) RIGHT PTX ? pancreatic contusion 05/13: RIGHT CT in the ED 05/21: EGD w/ clips 05/22: RIGHT CT removed 05/23: Extubated Diet: PUREED ADA w/ nectar thick. ST swallow. Pulm: IS, Acapella, EZ-pap. nebs. Mucinex Pain: Percocet. Dilaudid IV. Robaxin. Lidoderm patch. Activity: OOB. PT and OT ordered. (NWMckenna TERAN) GI: Protonix 40 mg PO BID. Bowel: Sonja-colace BID. MOM. Lactulose BID. Dulcolax PRN. LBM: 05/27 DVT: SCD's. Lovenox 40 q day RIGHT clavicle fx Orthopedics consulted Non-operative management Pain control Sling Sternal fx, Anterior mediastinal hematoma, LEFT rib fxs, RIGHT rib fxs, RIGHT PTX, Respiratory failure Supportive care 05/13: RIGHT CT in the ED 05/22: RIGHT CT removed 05/23: Extubated 05/23: Sputum - MRSA, Enterobacter Aerogenes 05/24: Urine - Enterobacter Aerogenes ID consulted. Asked Dr Latham to make end date recommendations on ABX for discharge Abx: PO Levaquin. Zyvox O2 as needed Pain control Pulmonary toileting OOB- PT ordered- recommend rehab Pancreatic contusion Supportive care Monitor LFTs HTN Hydralazine 25mg q8h Atenolol 25 BID PRN Vasotec GIB GI consulted 05/21: EGD w/ clips 05/23: MRCP - Normal, small amt of ascites PO Protonix No further GIB Plan of care discussed with patient at bedside. Case management consulted to assist with discharge planning. [facility] evaluating for possible placement. Patient is clear for discharge once arrangements made. The exam, history, and the medical decision-making described in the above note were completed with the assistance of the mid-level provider. I reviewed and agree with the findings presented. I attest that I had a [id number] encounter with the patient on the same day, and personally performed and documented my assessment and findings in the medical record. Ismael Gonzales May 29, 2017 15:54 Boo Rodriguez MD May 30, 2017 12:26
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
[2017-05-29] MEDS: REMOVE OLD LIDOCAINE PATCH T-DERMAL SCH (21:00)
[2017-05-29] MEDS: MAGNESIUM HYDROXIDE SUSP 30 ML CUP PO SCH (22:33)
[2017-05-30] VITALS: BP 164/77; PULSE 68; RESP 20; TEMP 98.4; O2SAT 95
[2017-05-30] MEDS: oxyCODONE/ACETAMINOPHEN 10 MG/325 MG TAB PO PRN ×3 (03:45→15:15)
[2017-05-30] MEDS: LINEZOLID 600 MG TAB PO SCH ×2 (03:46→15:15)
[2017-05-30 04:00] VITALS: BP 142/73; PULSE 65; RESP 20; TEMP 98.8; O2SAT 96
[2017-05-30] MEDS: RESP: ALBUTEROL 2.5 MG/IPRATROPIUM 0.5 MG NEB (SCH) NEB ×2 (04:50→10:00)
[2017-05-30 04:52] VITALS: O2SAT 95
[2017-05-30] MEDS: hydrALAZINE HCL 25 MG TAB PO SCH ×2 (06:12→15:15)
[2017-05-30] MEDS: METHOCARBAMOL 500 MG TAB PO SCH ×2 (06:12→15:15)
[2017-05-30 08:00] VITALS: BP 150/75; PULSE 65; RESP 18; TEMP 99.1; O2SAT 95
[2017-05-30] MEDS: LEVOFLOXACIN 750 MG TAB PO SCH (09:00)
[2017-05-30] MEDS: DOCUSATE SODIUM 50 MG/SENNA 8.6 MG TAB PO SCH (09:00)
[2017-05-30] MEDS: guaiFENesin E.R. 600 MG TAB PO SCH (09:00)
[2017-05-30] MEDS: PANTOPRAZOLE SOD 40 MG DELAYED RELEASE TAB PO SCH (09:00)
[2017-05-30] MEDS: ATENOLOL 25 MG TAB PO SCH (09:00)
[2017-05-30] MEDS: LACTULOSE SYRUP 20 GM/30 ML CUP PO SCH (09:00)
[2017-05-30] MEDS: ENOXAPARIN SODIUM 40 MG/0.4 ML SYRINGE SQ SCH (09:00)
[2017-05-30] MEDS: LIDOCAINE HCL 5% PATCH T-DERMAL SCH (09:01)
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
[2017-05-30 12:00] VITALS: BP 157/71; PULSE 68; RESP 18; TEMP 98.6; O2SAT 90
[2017-05-30] MEDS ORDERED: OXYC1TAB63 PO (15:48)
[2017-05-30] MEDS ORDERED: FENT25T T-DERMAL (15:48)
[2017-05-30] MEDS ORDERED: LIDO5DIS5 T-DERMAL (15:48)
[2017-05-30] MEDS ORDERED: PANT40TA3 PO (15:48)
[2017-05-30] MEDS ORDERED: LEVA750T9 PO (15:48)
[2017-05-30] MEDS ORDERED: SENN1TAB PO (15:48)
[2017-05-30] MEDS ORDERED: MAGN400S PO (15:48)
[2017-05-30] MEDS ORDERED: ZYVO600T PO (15:48)
[2017-05-30] MEDS ORDERED: guaiFENesin ER PO (15:48)
[2017-05-30] MEDS ORDERED: OXYC1TAB36 PO (15:48)
[2017-05-30] MEDS ORDERED: HYDR-3799 PO (15:48)
[2017-05-30] MEDS ORDERED: METH500T3 PO (15:48)
[2017-05-30] MEDS ORDERED: ENOX40P SQ (15:48)
[2017-05-30] MEDS ORDERED: ATEN25TA PO (15:48)
[2017-05-30 16:00] VITALS: BP 145/60; PULSE 65; RESP 18; TEMP 98.2; O2SAT 95
[2017-05-31] MEDS ORDERED: REMOVE OLD DURAGESIC (FENTANYL) PATCH T-DERMAL SCH (16:00)
== END 2017-05-30 18:27 | DRG 207 ==
LOC: NEPI 16:18 → EDBD 16:52 → NEDA 16:52 → N03A 17:19 → N05B 05-27 12:07
PROVIDERS: ADMIT Surgery Trauma Surgery; ATTEND Surgery Trauma Surgery
PROC: 5A1955Z Respiratory Ventilation, Greater than 96 Consecutive Hours (ICD-10-PCS; principal; 2017-05-13)
PROC: 0BH17EZ Insertion of Endotracheal Airway into Trachea, Via Natural or Artificial Opening (ICD-10-PCS; 2017-05-13)
PROC: 0W9930Z Drainage of Right Pleural Cavity with Drainage Device, Percutaneous Approach (ICD-10-PCS; 2017-05-13)
PROC: 06HY33Z Insertion of Infusion Device into Lower Vein, Percutaneous Approach (ICD-10-PCS; 2017-05-13)
PROC: 30233K1 Transfusion of Nonautologous Frozen Plasma into Peripheral Vein, Percutaneous Approach (ICD-10-PCS; 2017-05-13)
PROC: 30233N1 Transfusion of Nonautologous Red Blood Cells into Peripheral Vein, Percutaneous Approach (ICD-10-PCS; 2017-05-13)
PROC: 30233R1 Transfusion of Nonautologous Platelets into Peripheral Vein, Percutaneous Approach (ICD-10-PCS; 2017-05-13)
PROC: 0W3P8ZZ Control Bleeding in Gastrointestinal Tract, Via Natural or Artificial Opening Endoscopic (ICD-10-PCS; 2017-05-21)
PROC: 0DB68ZX Excision of Stomach, Via Natural or Artificial Opening Endoscopic, Diagnostic (ICD-10-PCS; 2017-05-21)
DX: S27.2XXA Traumatic hemopneumothorax, initial encounter (principal); T79.4XXA Traumatic shock, initial encounter; S22.5XXA Flail chest, initial encounter for closed fracture; J15.6 Pneumonia due to other Gram-negative bacteria; J15.212 Pneumonia due to Methicillin resistant Staphylococcus aureus; R18.8 Other ascites; K55.21 Angiodysplasia of colon with hemorrhage; S22.20XA Unspecified fracture of sternum, initial encounter for closed fracture; J96.00 Acute respiratory failure, unspecified whether with hypoxia or hypercapnia; J44.1 Chronic obstructive pulmonary disease with (acute) exacerbation; K86.1 Other chronic pancreatitis; J98.11 Atelectasis; R17 Unspecified jaundice; N39.0 Urinary tract infection, site not specified; J44.9 Chronic obstructive pulmonary disease, unspecified; I10 Essential (primary) hypertension; T79.7XXA Traumatic subcutaneous emphysema, initial encounter; S42.031A Displaced fracture of lateral end of right clavicle, initial encounter for closed fracture; D64.9 Anemia, unspecified; G40.909 Epilepsy, unspecified, not intractable, without status epilepticus; E11.9 Type 2 diabetes mellitus without complications; K29.50 Unspecified chronic gastritis without bleeding; R79.89 Other specified abnormal findings of blood chemistry; R13.10 Dysphagia, unspecified; R00.8 Other abnormalities of heart beat; R00.1 Bradycardia, unspecified; V49.50XA Passenger injured in collision with unspecified motor vehicles in traffic accident, initial encounter; Y92.410 Unspecified street and highway as the place of occurrence of the external cause; M10.9 Gout, unspecified; Z86.19 Personal history of other infectious and parasitic diseases; Z88.0 Allergy status to penicillin
CPT/HCPCS: 31500; 32551; 36215; 36225; 36247; 36430; 36556; 36600; 43753; 70450; 71010; 71250; 71260; 72125; 72170; 74176; 74177; 74181; 75756; 75774; 76377; 76937; 80048; 80053; 80076; 82435; 82565; 82805; 82947; 83690; 83735; 84100; 84132; 84295; 84484; 84520; 85007; 85014; 85018; 85025; 85027; 85384; 85610; 85730; 86850; 86900; 86901; 86920; 86927; 87040; 87070; 87077; 87086; 87147; 87186; 87205; 87641; 88305; 88312; 93005; 93306; 94002; 94003; 94150; 94640; 94664; 94667; 94668; 96374; 96375; 99291; J1170; C1760; C1769; C1887; C1894; C9113; G0390; J0171; J0330; J0360; J0692; J1650; J1940; J1956; J2250; J2405; J2765; J3010; J3370; J3480; J7030; J7040; P9016; P9017; P9035; P9045; Q9967